=== PATIENT | female | born 1960 | race Caucasian/White ===

== ENCOUNTER 2016-12-23 13:59 | Emergency (ER) | payer OTHER ==
[~2016-12-23] VITALS: Ht 157.5 cm; Wt 68.0 kg
[~2016-12-23 13:59] MED LIST: ALBU8.5HRX IH; ALPR.5T PO; ALPR1T PO; ASPI-999 PO; ASPI81TA19 GT; Atorvastatin Calcium PO; BUDE6HFA IH; CITA10TA PO; CLPD75T PO; ENAL20TA PO; FENT1PAT10 TD; HYDR-2890 PO; HYDR-3820 PO; HYDR-753 PO; HYDR1TAB PO; HYDR1TAB86 PO; MEPE50TA PO; MULT-974 PO; NITR-65 PO; NITR100C44 PO; NO HOME MEDS; ONDA4TAB8 PO; ONDAN4ODT PO; OXYC-188 PO; PANT20TA PO; PNT40TEC PO; PRD50T PO; RT-ALBUINH IH; SUCR1ORA5 PO; TRM50T PO
[2016-12-23] MEDS ORDERED: ASPIRIN 81 MG CHEW (CHILDREN'S ASA) ONE (14:07)
[2016-12-23] MEDS ORDERED: CLOPIDOGREL 300 MG (PLAVIX) TABLET PO ONE (14:08)
[2016-12-23 14:57] LABS: BASOPHILS % (AUTO) 1 % (0-10); EOSINOPHILS # (AUTO) 0.1 10^3/uL (0.0-0.3); EOSINOPHILS % (AUTO) 2 % (0-10); LYMPHOCYTES # (AUTO) 1.6 X 10^3 (1.0-4.0); LYMPHOCYTES % (AUTO) 35 % (12-44); MEAN CORPUSCULAR HEMOGLOBIN 33 PG (25-34); MEAN CORPUSCULAR HGB CONC 34 G/DL (32-36); MEAN CORPUSCULAR VOLUME 97 FL (80-99); MEAN PLATELET VOLUME 10.9 FL (7.4-10.4); MONOCYTES # (AUTO) 0.4 X 10^3 (0.0-1.0); MONOCYTES % (AUTO) 8 % (0-12); NEUTROPHILS # (AUTO) 2.5 X 10^3 (1.8-7.8); NEUTROPHILS % (AUTO) 54 % (42-75); PLATELET COUNT 146 10^3/uL (130-400); RED BLOOD COUNT 4.36 10^6/uL (4.35-5.85); RED CELL DISTRIBUTION WIDTH 12.2 % (10.0-14.5); WHITE BLOOD COUNT 4.6 10^3/uL (4.3-11.0)
[2016-12-23] MEDS ORDERED: fentaNYL INJECTION 100 MCG/2 ML AMP IVP ONE (15:00)
[2016-12-23] MEDS ORDERED: ONDANSETRON 4 MG/2 ML (SDV) Z0FRAN IVP ONE (15:00)
--- NOTE | 2016-12-23 15:00 | ED Abdominal Pain ---
General Chief Complaint: Abdominal/GI Problems Stated Complaint: ABDOMINAL PAIN Nursing Triage Note: c/o abd pain. Onset this morning. Sepsis Screen: No Definite Risk Source of Information: Patient Exam Limitations: No Limitations History of Present Illness Time Seen By Provider: 14:58 Initial Comments To ER with c/o nausea, epigastric pain since awakening this morning. No fevers. No vomiting. Not having bowel movements. Also had high blood pressure today at 180/90 this morning. Has known chronic pancreatitis. Timing/Duration: 12-24 Hours Severity/Quality: Moderate Radiation: No Radiation Activities at Onset: None Associated Symptoms: Nausea/Vomiting Allergies and Home Medications Allergies Coded Allergies: morphine (Verified Allergy, Mild, NAUSEA, 06/23/11) Penicillins (Verified Allergy, Unknown, 07/17/14) sulfamethoxazole (Verified Allergy, Unknown, NAUSEA, 07/24/15) PT REPORTS EMESIS WITH EVERY DOSE TAKEN, REGARDLESS OF FOOD INTAKE trimethoprim (Verified Allergy, Unknown, NAUSEA, 07/24/15) PT REPORTS EMESIS WITH EVERY DOSE TAKEN, REGARDLESS OF FOOD INTAKE Home Medications Albuterol Sulfate 8.5 Gm Hfa.aer.ad, 1 PUFF IH BID PRN for CONGESTION, (Reported ) Alprazolam 1 Mg Tablet, 1 MG PO Q6H PRN for ANXIETY, (Reported) Aspirin 81 Mg Tab.chew, 81 MG PO DAILY, (Reported) Enalapril Maleate 20 Mg Tablet, 20 MG PO HS, (Reported) Hydrocodone/Acetaminophen 1 Each Tablet, 1 TAB PO Q4H PRN for PAIN, (Reported) Multivitamin 1 Each Tablet, 1 TAB PO HS, (Reported) Pantoprazole Sodium 20 Mg Tablet.dr, 20 MG PO BID, (Reported) Sucralfate 1 Gm/10 Ml Oral.susp, 1 GM PO QID, #1200 30 minutes before meals and at bedtime Prescribed by: SOPHIE HERRERA on 03/28/16 0512 Review of Systems Constitutional: see HPI EENTM: No Symptoms Reported Respiratory: No Symptoms Reported Cardiovascular: No Symptoms Reported Gastrointestinal: See HPI, Abdominal Pain, Constipated, Denies Diarrhea, Nausea Genitourinary: No Symptoms Reported Musculoskeletal: no symptoms reported Skin: no symptoms reported Psychiatric/Neurological: No Symptoms Reported Endocrine: No Symptoms Reported Hematologic/Lymphatic: No Symptoms Reported Past Nuqfdst-Eltsbl-Awzzwm Hx Patient Social History Type Used: Cigarettes Recent Foreign Travel: No Contact w/Someone Who Travel: No Recent Infectious Disease Expo: No Recent Hopitalizations: No Immunizations Up To Date Tetanus Booster (TDap): More than 5yrs PED Vaccines UTD: No Date of Pneumonia Vaccine: Jul 16, 2013 Date of Influenza Vaccine: Jul 24, 2015 Seasonal Allergies Seasonal Allergies: Yes Surgeries HX Surgeries: Yes (PANCREATIC STENT AND REMOVAL; HYSTERECTOMY, CARPAL TUNNEL, CAREY) Surgeries: Gallbladder, Hysterectomy, Orthopedic Respiratory Hx Respiratory Disorders: Yes Respiratory Disorders: Chronic Bronchitis Cardiovascular Hx Cardiac Disorders: Yes Cardiac Disorders: Hypertension Neurological Hx Neurological Disorders: No Reproductive System Hx Reproductive Disorders: No Sexually Transmitted Disease: No HIV/AIDS: No Female Reproductive Disorders: Denies 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 Genitourinary Hx Genitourinary Disorders: No Gastrointestinal Hx Gastrointestinal Disorders: Yes Gastrointestinal Disorders: Gastroesophageal Reflux, Chronic Constipation, Pancreatitis Musculoskeletal Hx Musculoskeletal Disorders: Yes Musculoskeletal Disorders: Degenerate Disk Disease, Arthritis, Chronic Back Pain Endocrine Hx Endocrine Disorders: No HEENT HX ENT Disorders: No Loss of Vision: Denies Hearing Impairment: Denies Cancer Hx Cancer: No Psychosocial Hx Psychiatric Problems: Yes Behavioral Health Disorders: Sleep Difficulties, Anxiety, Depression Integumentary HX Skin/Integumentary Disorder: No Blood Transfusions Hx Blood Disorders: No Adverse Reaction to a Blood Tr: No Family Medical History Family Medial History: Alcoholism 03 FATHER, , Onset:Unknown Cancer 03 FATHER, (LUNG) 03 MOTHER, (LUNG) 09 SISTER, (OVARIAN) 09 SISTER, Age:56 (BREAST ) Family history: Arthritis 09 SISTER, Age:56 Family history: Asthma 09 SISTER, Age:56 Family history: Breast disease Family history: Thyroid disorder 09 SISTER, Age:56 History of - anemia 03 MOTHER, History of - respiratory disease 03 FATHER, 03 MOTHER, 09 SISTER, Age:56 No Family History of: Abdominal aortic aneurysm [place]'s disease Aphasia Cancer of colon Cataract Chest pain Congenital heart disease Congestive heart failure Cystic fibrosis Dementia Dysphagia Family history: Allergy Family history: Alzheimer's disease Family history: Cardiovascular disease Family history: Coronary thrombosis Family history: Diabetes mellitus Family history: Gastrointestinal disease Family history: Glaucoma Family history: Hypertension Family history: Osteoporosis Headache Hearing loss Heart disease Hereditary disease History of - disorder History of drug abuse Human immunodeficiency virus (HIV) seropositivity Hypercholesterolemia Infertile Kidney disease Myocardial infarction Parkinson's disease Prostate cancer Psychotic disorder Seizure disorder Stroke Tuberculosis Visual impairment Physical Exam Vital Signs VS - Last 72 Hours, by Label 12/23/16 14:20 Temp 97.8 Pulse 80 Resp 16 B/P (MAP) 164/87 Pulse Ox 98 Capillary Refill : Less Than 3 Seconds General Appearance: WD/WN, no apparent distress HEENT: PERRL/EOMI, normal ENT inspection Neck: non-tender, full range of motion, supple Respiratory: normal breath sounds, no respiratory distress, no accessory muscle use Gastrointestinal: normal bowel sounds, non tender, soft Extremities: normal range of motion, non-tender Neurologic/Psychiatric: alert, normal mood/affect, oriented x 3 Skin: normal color, warm/dry Progress/Results/Core Measures Results/Orders Lab Results Laboratory Tests Test 12/23/16 14:50 12/23/16 15:36 Range/Units White Blood Count 4.6 4.3-11.0 10^3/uL Red Blood Count 4.36 4.35-5.85 10^6/uL Hemoglobin 14.2 11.5-16.0 G/DL Hematocrit 42 35-52 % Mean Corpuscular Volume 97 80-99 FL Mean Corpuscular Hemoglobin 33 25-34 PG Mean Corpuscular Hemoglobin Concent 34 32-36 G/DL Red Cell Distribution Width 12.2 10.0-14.5 % Platelet Count 146 130-400 10^3/uL Mean Platelet Volume 10.9 H 7.4-10.4 FL Neutrophils (%) (Auto) 54 42-75 % Lymphocytes (%) (Auto) 35 12-44 % Monocytes (%) (Auto) 8 0-12 % Eosinophils (%) (Auto) 2 0-10 % Basophils (%) (Auto) 1 0-10 % Neutrophils # (Auto) 2.5 1.8-7.8 X 10^3 Lymphocytes # (Auto) 1.6 1.0-4.0 X 10^3 Monocytes # (Auto) 0.4 0.0-1.0 X 10^3 Eosinophils # (Auto) 0.1 0.0-0.3 10^3/uL Basophils # (Auto) 0.0 0.0-0.1 10^3/uL Sodium Level 142 135-145 MMOL/L Potassium Level 4.3 3.6-5.0 MMOL/L Chloride Level 109 H 98-107 MMOL/L Carbon Dioxide Level 26 21-32 MMOL/L Anion Gap 7 5-14 MMOL/L Blood Urea Nitrogen 8 7-18 MG/DL Creatinine 0.77 0.60-1.30 MG/DL Estimat Glomerular Filtration Rate > 60 BUN/Creatinine Ratio 10 Glucose Level 84 70-105 MG/DL Calcium Level 8.8 8.5-10.1 MG/DL Total Bilirubin 0.7 0.1-1.0 MG/DL Aspartate Amino Transf (AST/SGOT) 16 5-34 U/L Alanine Aminotransferase (ALT/SGPT) 11 0-55 U/L Alkaline Phosphatase 70 40-136 U/L Total Protein 5.8 L 6.4-8.2 G/DL Albumin 3.8 3.2-4.5 G/DL Lipase 13 8-78 U/L Urine Color YELLOW Urine Clarity SLIGHTLY CLOUDY Urine pH 7 5-9 Urine Specific [place] 1.005 L 1.016-1.022 Urine Protein NEGATIVE NEGATIVE Urine Glucose (UA) NEGATIVE NEGATIVE Urine Ketones NEGATIVE NEGATIVE Urine Nitrite NEGATIVE NEGATIVE Urine Bilirubin NEGATIVE NEGATIVE Urine Urobilinogen NORMAL NORMAL MG/DL Urine Leukocyte Esterase NEGATIVE NEGATIVE Urine RBC (Auto) NEGATIVE NEGATIVE Urine RBC NONE /HPF Urine WBC NONE /HPF Urine Squamous Epithelial Cells 5-10 /HPF Urine Crystals NONE /LPF Urine Bacteria NEGATIVE /HPF Urine Casts NONE /LPF Urine Mucus NEGATIVE /LPF Urine Culture Indicated NO My Orders Orders - SHELBY LEGGETT APRN Saline Lock/Iv-Start (12/23/16 14:27) Cbc With Automated Diff (12/23/16 14:27) Comprehensive Metabolic Panel (12/23/16 14:27) Lipase (12/23/16 14:27) Ua Culture If Indicated (12/23/16 14:27) Acute Abd Series (12/23/16 14:56) Fentanyl Injection (Sublimaze Injection (12/23/16 15:00) Ondansetron Injection (Zofran Injectio (12/23/16 15:00) Medications Given in ED Current Medications Medications Dose Ordered Sig/Piper Route Start Time Stop Time Status Last Admin Dose Admin Fentanyl Citrate 50 mcg ONCE ONCE IVP 12/23/16 15:00 12/23/16 15:01 DC 12/23/16 15:34 50 MCG Ondansetron HCl 4 mg ONCE ONCE IVP 12/23/16 15:00 12/23/16 15:01 DC 12/23/16 15:34 4 MG Vital Signs/I&O Vital Sign - Last 12Hours 12/23/16 14:20 Temp 97.8 Pulse 80 Resp 16 B/P (MAP) 164/87 Pulse Ox 98 Blood Pressure Mean: 112 Diagnostic Imaging Diagonstic Imaging: Xray Comments NAME: AIXA AGUIRRE [facility] REC#: [id number] PT STATUS: REG ER : 1960 PHYSICIAN: SHELBY LEGGETT DEVELOPMENT EDUCATOR ADMIT DATE: 12/23/16/ER Draft Date of Exam:12/23/16 ACUTE ABD SERIES INDICATION: History of pancreatitis since 2011. Complains of abdominal pain, headache and nausea for the past couple of days. Elevated blood pressure for two days. COMPARISON STUDY: Abdomen from March 28. FINDINGS: Upright view of the chest demonstrates the lungs to be clear. The heart, mediastinum and pulmonary vascularity are normal. Supine and upright views of the abdomen demonstrate surgical clips in the region of the gallbladder fossa. Bowel gas pattern appears normal. No free air or air fluid levels are present. The osseous structures demonstrate minimal degenerative changes. IMPRESSION: There are no acute findings. Dictated on workstation # [id number] Dict: 12/23/16 1521 Trans: 12/23/16 1531 [facility] [id number] Interpreted by: MARGAUX DOVE MD Electronically signed by: Departure Impression Impression: Primary Impression: Upper abdominal pain Additional Impressions: Chronic pancreatitis Hypertension Disposition: HOME, SELF-CARE Condition: Improved Departure-Patient Inst. Decision time for Depature: 14:59 Referrals: KATARINA RUBIN MD (PCP/Family) Primary Care Physician Patient Instructions: Chronic Pancreatitis Add. Discharge Instructions: Clear liquids only for the next 12-24 hours 2. Return to ER for any concerns 3. Follow-up with your doctor next week 4. I have given a prescription for hydrochlorothiazide, a mild diuretic to add to your enalapril. Unfortunately the combination drug told about including enalapril/hydrochlorothiazide does come any strength containing 20 mg of enalapril so we will have to add a second pill to her regimen. All discharge instructions reviewed with patient and/or family. Voiced understanding. Scripts Hydrochlorothiazide (Hydrochlorothiazide) 25 Mg Tablet 25 MG PO DAILY, #10 TAB Prov: SHELBY LEGGETT APRN 12/23/16 Work/School Note: Work Release Form Date Seen in the Emergency Department: Dec 23, 2016 Return to Work: Dec 25, 2016 SHELBY LEGGETT APRN Dec 23, 2016 15:00
[2016-12-23 15:21] LABS: ALANINE AMINOTRANSFERASE 11 U/L (0-55); ALBUMIN 3.8 G/DL (3.2-4.5); ANION GAP 7 MMOL/L (5-14); ASPARTATE AMINO TRANSFERASE 16 U/L (5-34); BILIRUBIN,TOTAL 0.7 MG/DL (0.1-1.0); BLOOD UREA NITROGEN 8 MG/DL (7-18); BUN/CREATININE RATIO 10; CALCIUM 8.8 MG/DL (8.5-10.1); CARBON DIOXIDE 26 MMOL/L (21-32); CHLORIDE 109 MMOL/L (98-107); CREATININE SERUM 0.77 MG/DL (0.60-1.30); GFR ESTIMATED > 60; GLUCOSE 84 MG/DL (70-105); LIPASE 13 U/L (8-78); POTASSIUM 4.3 MMOL/L (3.6-5.0); SODIUM 142 MMOL/L (135-145); TOTAL PROTEIN 5.8 G/DL (6.4-8.2)
--- NOTE | 2016-12-23 15:32 | Diagnostic Imaging Report ---
INDICATION: History of pancreatitis since 2011. Complains of abdominal pain, headache and nausea for the past couple of days. Elevated blood pressure for two days. COMPARISON STUDY: Abdomen from March 28. FINDINGS: Upright view of the chest demonstrates the lungs to be clear. The heart, mediastinum and pulmonary vascularity are normal. Supine and upright views of the abdomen demonstrate surgical clips in the region of the gallbladder fossa. Bowel gas pattern appears normal. No free air or air fluid levels are present. The osseous structures demonstrate minimal degenerative changes. IMPRESSION: There are no acute findings. Dictated by: Dictated on workstation # [id number]
[2016-12-23 15:42] LABS: BILIRUBIN,URINE NEGATIVE (NEGATIVE); KETONES,URINE NEGATIVE (NEGATIVE); LEUKOCYTE ESTERASE ,URINE NEGATIVE (NEGATIVE); NITRITE,URINE NEGATIVE (NEGATIVE); PH,URINE 7 (5-9); PROTEIN,URINE NEGATIVE (NEGATIVE); UROBILINOGEN,URINE NORMAL (NORMAL)
[2016-12-23] MEDS ORDERED: HYDR25TA4 PO (16:17)
[2016-12-23 16:28] VITALS: BP 148/80
== END 2016-12-23 16:28 | disposition home or self-care (01) ==
LOC: EDUNIT# 13:59 → ER 14:02
DX: K86.1 Other chronic pancreatitis (principal); I10 Essential (primary) hypertension; Z79.82 Long term (current) use of aspirin; Z79.899 Other long term (current) drug therapy
CPT/HCPCS: 36415; 74022; 80053; 81000; 83690; 85025; 96374; 96375

== ENCOUNTER → 2018-01-04 | Outpatient (CLI) | payer OTHER ==
[~2018-01-04] MED LIST changes: +BARIUM SUSPENSION 2.1% (VANILLA SILQ) 450 ML PO ONE; +CATHETER FLUSH 10 ML SYR IV PRN; +HYDR25TA4 PO; +IOHEXOL 350 MG/ML 100 ML (OMNIPAQUE 350) VIAL IV ONE; +NS 250 ML (IVPB) BAG IV ONE; +RECEIVED CONTRAST (Hold Metformin) IV SCH
--- NOTE | 2018-01-04 16:09 | Diagnostic Imaging Report ---
PROCEDURE: CT chest, abdomen, and pelvis with contrast. TECHNIQUE: Multiple contiguous axial images were obtained through the chest, abdomen, and pelvis after the administration of intravenous contrast. INDICATION: Weight fluctuation. FINDINGS: The previous CT abdomen/pelvis exam of 07/23/2015 noted diverticulosis of the sigmoid colon but failed to show any sign of acute diverticulitis. On this exam, there are still a number of diverticula involving the sigmoid colon. There is no distortion of the pericolonic fat however to indicate acute diverticulitis. There does appear to be a fair amount of fecal material throughout the colon. The appendix was not well visualized but there are no indirect signs of acute appendicitis. There are few fluid-filled segments of small bowel, low in the pelvis. These are nonspecific. There is no pelvic mass or free fluid collection noted. The urinary bladder is grossly unremarkable. The uterus is surgically absent. The gallbladder is also surgically absent. The liver, spleen, pancreas, adrenals, kidneys, aorta, and inferior vena cava show no sign of an acute abnormality. The aorta is small and there is heavy calcification involving the origin of both common iliac arteries. The stomach is not well distended and consequently difficult to assess. The images through the thorax show that the heart size is within normal limits. Coronary artery calcifications are evident. The aorta is not abnormally dilated. The pulmonary arteries are not fully opacified but there is no definite defect to suggest a pulmonary embolus. There is no mediastinal or hilar adenopathy. The thyroid gland is generally unremarkable. There are bullae/blebs involving both lung apices, particularly on the right. The lungs are generally clear, otherwise. There are few strands of atelectasis in the right lower lobe. There is no sign of failure, pneumonia, or of a pleural effusion to suggest an acute abnormality, however. There is no parenchymal lung mass identified either. There is no obvious breast mass. According to our records, the patient has not had a mammogram since 2012. If the patient has had a recent (within the last year) mammogram elsewhere, then no further imaging will be necessary. However, if the patient has not had a recent mammogram, then mammography would be recommended for further evaluation. The bone windows show no sign of a fracture or of a destructive lesion. IMPRESSION: 1. There is no acute abnormality of the chest, abdomen, or pelvis. 2. There is diverticulosis of the sigmoid colon without evidence for acute diverticulitis. There does appear to be a fair amount of fecal material throughout the colon. 3. The uterus and gallbladder are surgically absent. 4. There are bullae/blebs involving both lung apices, particularly on the right. 5. There is no obvious breast mass. Recommendations, as above. Dictated by: Dictated on workstation # [id number]
== END ==
LOC: RAD 13:32
PROVIDERS: ATTEND Family Medicine
DX: K57.30 Diverticulosis of large intestine without perforation or abscess without bleeding (principal); Z90.49 Acquired absence of other specified parts of digestive tract; Z90.710 Acquired absence of both cervix and uterus; Z87.19 Personal history of other diseases of the digestive system
CPT/HCPCS: 71260; 74177

== ENCOUNTER 2018-05-17 12:25 | Outpatient (CLI) | payer OTHER ==
[~2018-05-17] VITALS: Ht 157.5 cm; Wt 69.6 kg
[~2018-05-17 12:25] MED LIST changes: -BARIUM SUSPENSION 2.1% (VANILLA SILQ) 450 ML PO ONE; -CATHETER FLUSH 10 ML SYR IV PRN; +HYDR-4196 PO; -HYDR-753 PO; -IOHEXOL 350 MG/ML 100 ML (OMNIPAQUE 350) VIAL IV ONE; -NS 250 ML (IVPB) BAG IV ONE; -RECEIVED CONTRAST (Hold Metformin) IV SCH
[2018-05-17] MEDS ORDERED: ALPR1TAB7 PO (12:46)
[2018-05-17] MEDS ORDERED: HYDR12.56 PO (12:46)
[2018-05-17] MEDS ORDERED: ONDA8TAB13 PO (12:46)
[2018-05-17] MEDS ORDERED: BISA5TAB49 PO (12:46)
[2018-05-17] MEDS ORDERED: CYCL10TA9 PO (12:46)
[2018-05-17] MEDS ORDERED: MULT-351 PO (12:46)
[2018-05-17] MEDS ORDERED: AMLO5TAB7 PO (12:46)
[2018-05-17] MEDS ORDERED: PANT20TA3 PO (12:46)
[2018-05-17 12:51] VITALS: BP 126/74
== END 2018-05-17 14:00 | disposition home or self-care (01) ==
LOC: PREOP 12:25
PROVIDERS: ATTEND Orthopaedic Surgery
DX: Z01.818 Encounter for other preprocedural examination (principal)
CPT/HCPCS: 87081

== ENCOUNTER 2018-05-17 13:35 | Emergency (ER) | payer OTHER ==
[~2018-05-17] VITALS: Ht 157.5 cm; Wt 69.9 kg
[~2018-05-17 13:35] MED LIST changes: +ALPR1TAB7 PO; +AMLO5TAB7 PO; +BISA5TAB49 PO; +CYCL10TA9 PO; +HYDR12.56 PO; +MULT-351 PO; +ONDA8TAB13 PO; +PANT20TA3 PO
--- OUTSIDE RECORDS SUMMARY | 2018-05-17 13:43 | XMS REPORT | Continuity of Care Document ---
Author Author [facility] Organization [facility] Address Unknown Phone Unavailable Allergies Active Description Code Type Severity Reaction Onset Reported/Identified Relationship to Patient Clinical Status Yes morphine [id number] Drug Allergy Mild NAUSEA 06/23/2011 Yes Penicillins [id number] Drug Allergy Unknown N/A 07/17/2014 Yes sulfamethoxazole [id number] Drug Allergy Unknown NAUSEA 07/24/2015 Yes trimethoprim [id number] Drug Allergy Unknown NAUSEA 07/24/2015 Medications There is no data. Problems Date Dx Coded Attending Type Code Diagnosis Diagnosed By 10/22/2010 Ot 575.11 06/23/2011 Ot 305.1 06/23/2011 Ot 466.0 06/23/2011 Ot 786.2 08/28/2011 Ot 272.4 08/28/2011 Ot 305.1 08/28/2011 Ot 496 08/28/2011 Ot 511.0 08/28/2011 Ot 789.01 08/28/2011 Ot V04.81 09/26/2012 Ot 599.0 09/26/2012 Ot 789.00 07/17/2013 CARYN KEY, KATARINA R Ot 276.50 07/17/2013 CARYN KEY, KATARINA R Ot 305.1 07/17/2013 CARYN KEY, KATARINA R Ot 311 07/17/2013 CARYN KEY, KATARINA R Ot 491.20 08/04/2013 CARYN KEY, KATARINA R Ot 300.00 08/04/2013 CARYN KEY, KATARINA R Ot 305.1 08/04/2013 CARYN KEY, KATARINA R Ot 496 08/04/2013 CARYN KEY, KATARINA R Ot 577.0 07/17/2014 PHILOMENA KEY, MARK Leonard Ot 558.9 NONINF GASTROENTERIT NEC 07/17/2014 MARK QUACH MD Ot 789.06 ABDOMINAL PAIN, EPIGASTRIC 07/22/2014 CARYN KEY, KATARINA R Ot 786.2 08/25/2014 CARYN KEY, KATARINA Davis Ot 786.2 11/23/2014 KATARINA RUBIN MD Ot 272.4 HYPERLIPIDEMIA NEC/NOS 11/23/2014 KATARINA RUBIN MD Ot 305.1 TOBACCO USE DISORDER 11/23/2014 KATARINA RUBIN MD Ot 401.9 HYPERTENSION NOS 11/23/2014 KATARINA RUBIN MD Ot 414.01 CORONARY ATHEROSCLEROSIS OF [place] CORON 11/23/2014 KATARINA RUBIN MD R Ot 530.81 ESOPHAGEAL REFLUX 11/23/2014 KATARINA RUBIN MD Ot 786.50 CHEST PAIN NOS 11/23/2014 KATARINA RUBIN MD Ot V58.69 OTH MED,LT,CURRENT USE 02/04/2015 Ot 789.01 02/04/2015 Ot 571.8 02/04/2015 Ot 593.9 02/04/2015 Ot 789.00 02/04/2015 Ot 530.81 02/04/2015 Ot 492.8 02/04/2015 Ot 537.1 02/04/2015 Ot 562.10 02/04/2015 Ot 959.7 02/04/2015 Ot E000.8 02/04/2015 Ot E819.9 02/04/2015 KATARINA RUBIN MD Ot V76.12 02/04/2015 Ot 789.01 02/04/2015 Ot 571.8 02/04/2015 Ot 593.9 02/04/2015 Ot 789.00 02/04/2015 Ot 530.81 02/04/2015 Ot 492.8 02/04/2015 Ot 537.1 02/04/2015 Ot 562.10 02/04/2015 Ot 959.7 02/04/2015 Ot E000.8 02/04/2015 Ot E819.9 02/04/2015 KATARINA RUBIN MD Ot V76.12 06/18/2015 RAFAELA MON MD Ot M54.6 07/17/2015 RAFAELA MON MD Ot M54.6 07/23/2015 KATARINA RUBIN MD Ot 786.2 07/23/2015 RAFAELA MON MD Ot M54.6 07/27/2015 SEGLIE MD, KATARINA R Ot F17.210 NICOTINE DEPENDENCE, CIGARETTES, UNCOMPL 07/27/2015 KATARINA RUBIN MD R Ot I10 ESSENTIAL (PRIMARY) HYPERTENSION 07/27/2015 CARYN KEY, KATARINA R Ot K21.9 GASTRO-ESOPHAGEAL REFLUX DISEASE WITHOUT 07/27/2015 CARYN KEY, KATARINA R Ot K86.1 OTHER CHRONIC PANCREATITIS 07/27/2015 KATARINA RUBIN MD R Ot R10.11 RIGHT UPPER QUADRANT PAIN 07/27/2015 BHARAT RUBIN MDYD R Ot Z23 ENCOUNTER FOR IMMUNIZATION 07/28/2015 KATARINA RUBIN MD R Ot E78.5 HYPERLIPIDEMIA, UNSPECIFIED 07/28/2015 KATARINA RUBIN MD R Ot F17.210 NICOTINE DEPENDENCE, CIGARETTES, UNCOMPL 07/28/2015 KATARINA RUBIN MD R Ot F41.9 ANXIETY DISORDER, UNSPECIFIED 07/28/2015 KATARINA RUBIN MD R Ot I10 ESSENTIAL (PRIMARY) HYPERTENSION 07/28/2015 CARYN KEY, KATARINA R Ot I25.10 ATHSCL HEART DISEASE OF [place] CORONARY 07/28/2015 KATARINA RUBIN MD R Ot K21.9 GASTRO-ESOPHAGEAL REFLUX DISEASE WITHOUT 07/28/2015 KATARINA RUBIN MD R Ot K86.1 OTHER CHRONIC PANCREATITIS 07/28/2015 KATARINA RUBIN MD R Ot R07.9 CHEST PAIN, UNSPECIFIED 07/28/2015 BHARAT RUBIN MDYD R Ot E78.5 07/28/2015 BHARAT RUBIN MDYD R Ot F17.210 07/28/2015 KATARINA RUBIN MD R Ot F41.9 07/28/2015 CARYN KEY KATARINA R Ot I10 07/28/2015 KATARINA RUBIN MD R Ot I25.10 07/28/2015 KATARINA RUBIN MD R Ot K21.9 07/28/2015 KATARINA RUBIN MD R Ot K86.1 07/28/2015 KATARINA RUBIN MD R Ot R07.9 03/28/2016 LUZMARIA KEY, SOPHIE Mitchell Ot F17.210 NICOTINE DEPENDENCE, CIGARETTES, UNCOMPL 03/28/2016 LUZMARIA KEY, SOPHIE T Ot R10.13 EPIGASTRIC PAIN 03/28/2016 SOPHIE DUTTA MD T Ot Z87.19 PERSONAL HISTORY OF OTHER DISEASES OF 03/29/2016 LUZMARIA KEY, SOPHIE Mitchell Ot F17.210 NICOTINE DEPENDENCE, CIGARETTES, UNCOMPL 03/29/2016 SOPHIE DUTTA MD T Ot R10.13 EPIGASTRIC PAIN 03/29/2016 SOPHIE DUTTA MD T Ot Z87.19 PERSONAL HISTORY OF OTHER DISEASES OF 03/30/2016 SOPHIE DUTTA MD T Ot F17.210 NICOTINE DEPENDENCE, CIGARETTES, UNCOMPL 03/30/2016 SOPHIE DUTTA MD T Ot R10.13 EPIGASTRIC PAIN 03/30/2016 LUZMARIA KEY, SOPHIE T Ot Z87.19 PERSONAL HISTORY OF OTHER DISEASES OF 04/21/2016 SOPHIE DUTTA MD T Ot F17.210 NICOTINE DEPENDENCE, CIGARETTES, UNCOMPL 04/21/2016 SOPHIE DUTTA MD T Ot R10.13 EPIGASTRIC PAIN 04/21/2016 LUZMARIA KEY, SOPHIE T Ot Z87.19 PERSONAL HISTORY OF OTHER DISEASES OF 12/23/2016 KATARINA RUBIN MD R Ot 786.2 COUGH 12/23/2016 ELIESER KEY, RAFAELA Rice Ot M54.6 PAIN IN THORACIC SPINE 12/23/2016 SHELBY LEGGETT APRN Ot I10 ESSENTIAL (PRIMARY) HYPERTENSION 12/23/2016 SHELBY LEGGETT APRN Ot K86.1 OTHER CHRONIC PANCREATITIS 12/23/2016 SHELBY LEGGETT APRN Ot R10.13 EPIGASTRIC PAIN 12/23/2016 SHELBY LEGGETT HEAD BANQUET WAITRESS Ot Z79.82 USP (CURRENT) USE OF ASPIRIN 12/23/2016 SHELBY LEGGETT HEAD BANQUET WAITRESS Ot Z79.899 OTHER SPRUE KNOCKER (CURRENT) DRUG THERAPY 12/23/2016 KATARINA RUBIN MD R Ot 786.2 COUGH 12/23/2016 RAFAELA MON MD Ot M54.6 PAIN IN THORACIC SPINE 12/25/2016 SHELBY LEGGETT APRN Ot I10 ESSENTIAL (PRIMARY) HYPERTENSION 12/25/2016 SHELBY LEGGETT APRN Ot K86.1 OTHER CHRONIC PANCREATITIS 12/25/2016 SHELBY LEGGETT HEAD BANQUET WAITRESS Ot R10.13 EPIGASTRIC PAIN 12/25/2016 SHELBY LEGGETT HEAD BANQUET WAITRESS Ot Z79.82 USP (CURRENT) USE OF ASPIRIN 12/25/2016 SHELBY LEGGETT HEAD BANQUET WAITRESS Ot Z79.899 OTHER SPRUE KNOCKER (CURRENT) DRUG THERAPY 12/29/2016 SHELBY LEGGETT HEAD BANQUET WAITRESS Ot I10 ESSENTIAL (PRIMARY) HYPERTENSION 12/29/2016 SHELBY LEGGETT HEAD BANQUET WAITRESS Ot K86.1 OTHER CHRONIC PANCREATITIS 12/29/2016 SHELBY LEGGETT HEAD BANQUET WAITRESS Ot R10.13 EPIGASTRIC PAIN 12/29/2016 SHELBY LEGGETT HEAD BANQUET WAITRESS Ot Z79.82 SPRUE KNOCKER (CURRENT) USE OF ASPIRIN 12/29/2016 SHELBY LEGGETT HEAD BANQUET WAITRESS Ot Z79.899 OTHER USP (CURRENT) DRUG THERAPY 12/28/2017 KATARINA RUBIN MD Ot 786.2 COUGH 12/28/2017 RAFAELA MON MD Ot M54.6 PAIN IN THORACIC SPINE 01/04/2018 KATARINA RUBIN MD Ot 786.2 COUGH 01/04/2018 RAFAELA MON MD Ot M54.6 PAIN IN THORACIC SPINE 01/05/2018 KATARINA RUBIN MD Ot K57.30 DVRTCLOS OF LG INT W/O PERFORATION OR AB 01/05/2018 KATARINA RUBIN MD Ot Z87.19 PERSONAL HISTORY OF OTHER DISEASES OF 01/05/2018 KATARINA RUBIN MD Ot Z90.49 ACQUIRED ABSENCE OF OTHER SPECIFIED PART 01/05/2018 KATARINA RUBIN MD Ot Z90.710 ACQUIRED ABSENCE OF BOTH CERVIX AND UTER 01/10/2018 KATARINA RUBIN MD Ot K57.30 DVRTCLOS OF LG INT W/O PERFORATION OR AB 01/10/2018 KATARINA RUBIN MD Ot Z87.19 PERSONAL HISTORY OF OTHER DISEASES OF 01/10/2018 KATARINA RUBIN MD Ot Z90.49 ACQUIRED ABSENCE OF OTHER SPECIFIED PART 01/10/2018 KATARINA RUBIN MD Ot Z90.710 ACQUIRED ABSENCE OF BOTH CERVIX AND UTER 01/30/2018 KATARINA RUBIN MD Ot K57.30 DVRTCLOS OF LG INT W/O PERFORATION OR AB 01/30/2018 KATARINA RUBIN MD Ot Z87.19 PERSONAL HISTORY OF OTHER DISEASES OF TH 01/30/2018 KATARINA RUBIN MD, Ot Z90.49 ACQUIRED ABSENCE OF OTHER SPECIFIED PART 01/30/2018 KATARINA RUBIN MD, Ot Z90.710 ACQUIRED ABSENCE OF BOTH CERVIX AND UTER Procedures There is no data. Results Test Result Range Complete urinalysis with reflex to culture - 03/28/16 03:25 Urine color determination YELLOW NRG Urine clarity determination CLEAR NRG Urine pH measurement by test strip 7 5-9 Specific gravity of urine by test strip 1.010 1.016- 1.022 Urine protein assay by test strip, semi-quantitative NEGATIVE NEGATIVE Urine glucose detection by automated test strip NEGATIVE NEGATIVE Erythrocytes detection in urine sediment by light microscopy 1+ NEGATIVE Urine ketones detection by automated test strip NEGATIVE NEGATIVE Urine nitrite detection by test strip NEGATIVE NEGATIVE Urine total bilirubin detection by test strip NEGATIVE NEGATIVE Urine urobilinogen measurement by automated test strip (mass/volume) NORMAL NORMAL Urine leukocyte esterase detection by dipstick NEGATIVE NEGATIVE Automated urine sediment erythrocyte count by microscopy (number/high power field) [HPF] NRG Automated urine sediment leukocyte count by microscopy (number/high power field ) NONE NRG Bacteria detection in urine sediment by light microscopy NEGATIVE NRG Squamous epithelial cells detection in urine sediment by light microscopy 2-5 NRG Crystals detection in urine sediment by light microscopy NONE NRG Casts detection in urine sediment by light microscopy NONE NRG Mucus detection in urine sediment by light microscopy NEGATIVE NRG Complete urinalysis with reflex to culture NO NRG Complete blood count (CBC) with automated white blood cell (WBC) differential - 03/28/16 03:50 Blood leukocytes automated count (number/volume) 6.8 10*3/uL 4.3-11.0 Blood erythrocytes automated count (number/volume) 4.58 10*6/uL 4.35-5.85 Venous blood hemoglobin measurement (mass/volume) 15.0 g/dL 11.5-16.0 Blood hematocrit (volume fraction) 43 % 35-52 Automated erythrocyte mean corpuscular volume 94 [foz_us] 80-99 Automated erythrocyte mean corpuscular hemoglobin (mass per erythrocyte) 33 pg 25-34 Automated erythrocyte mean corpuscular hemoglobin concentration measurement ( mass/volume) 35 g/dL 32-36 Automated erythrocyte distribution width ratio 11.9 % 10.0-14.5 Automated blood platelet count (count/volume) 173 10*3/uL 130-400 Automated blood platelet mean volume measurement 11.1 [foz_us] 7.4-10.4 Automated blood neutrophils/100 leukocytes 52 % 42-75 Automated blood lymphocytes/100 leukocytes 39 % 12-44 Blood monocytes/100 leukocytes 7 % 0-12 Automated blood eosinophils/100 leukocytes 2 % 0-10 Automated blood basophils/100 leukocytes 0 % 0-10 Blood neutrophils automated count (number/volume) 3.5 10*3 1.8-7.8 Blood lymphocytes automated count (number/volume) 2.7 10*3 1.0-4.0 Blood monocytes automated count (number/volume) 0.5 10*3 0.0-1.0 Automated eosinophil count 0.1 10*3/uL 0.0-0.3 Automated blood basophil count (count/volume) 0.0 10*3/uL 0.0-0.1 Serum or plasma ethanol measurement (mass/volume) - 03/28/16 03:50 Serum or plasma ethanol measurement (mass/volume) < mg/dL <10 Comprehensive metabolic panel - 03/28/16 03:50 Serum or plasma sodium measurement (moles/volume) 142 mmol/L 135-145 Serum or plasma potassium measurement (moles/volume) 4.0 mmol/L 3.6-5.0 Serum or plasma chloride measurement (moles/volume) 107 mmol/L 98-107 Carbon dioxide 25 mmol/L 21-32 Serum or plasma anion gap determination (moles/volume) 10 mmol/L 5-14 Serum or plasma urea nitrogen measurement (mass/volume) 9 mg/dL 7-18 Serum or plasma creatinine measurement (mass/volume) 0.77 mg/dL 0.60-1.30 Serum or plasma urea nitrogen/creatinine mass ratio 12 NRG Serum or plasma creatinine measurement with calculation of estimated glomerular filtration rate > NRG Serum or plasma glucose measurement (mass/volume) 96 mg/dL 70-105 Serum or plasma calcium measurement (mass/volume) 8.8 mg/dL 8.5-10.1 Serum or plasma total bilirubin measurement (mass/volume) 0.3 mg/dL 0.1-1.0 Serum or plasma alkaline phosphatase measurement (enzymatic activity/volume) 87 U/L 40-136 Serum or plasma aspartate aminotransferase measurement (enzymatic activity/ volume) 14 U/L 5-34 Serum or plasma alanine aminotransferase measurement (enzymatic activity/volume ) 12 U/L 0-55 Serum or plasma protein measurement (mass/volume) 6.2 g/dL 6.4-8.2 Serum or plasma albumin measurement (mass/volume) 3.8 g/dL 3.2-4.5 Lipase - 03/28/16 03:50 Lipase 33 U/L 8-78 Complete blood count (CBC) with automated white blood cell (WBC) differential - 12/23/16 14:50 Blood leukocytes automated count (number/volume) 4.6 10*3/uL 4.3-11.0 Blood erythrocytes automated count (number/volume) 4.36 10*6/uL 4.35-5.85 Venous blood hemoglobin measurement (mass/volume) 14.2 g/dL 11.5-16.0 Blood hematocrit (volume fraction) 42 % 35-52 Automated erythrocyte mean corpuscular volume 97 [foz_us] 80-99 Automated erythrocyte mean corpuscular hemoglobin (mass per erythrocyte) 33 pg 25-34 Automated erythrocyte mean corpuscular hemoglobin concentration measurement ( mass/volume) 34 g/dL 32-36 Automated erythrocyte distribution width ratio 12.2 % 10.0-14.5 Automated blood platelet count (count/volume) 146 10*3/uL 130-400 Automated blood platelet mean volume measurement 10.9 [foz_us] 7.4-10.4 Automated blood neutrophils/100 leukocytes 54 % 42-75 Automated blood lymphocytes/100 leukocytes 35 % 12-44 Blood monocytes/100 leukocytes 8 % 0-12 Automated blood eosinophils/100 leukocytes 2 % 0-10 Automated blood basophils/100 leukocytes 1 % 0-10 Blood neutrophils automated count (number/volume) 2.5 10*3 1.8-7.8 Blood lymphocytes automated count (number/volume) 1.6 10*3 1.0-4.0 Blood monocytes automated count (number/volume) 0.4 10*3 0.0-1.0 Automated eosinophil count 0.1 10*3/uL 0.0-0.3 Automated blood basophil count (count/volume) 0.0 10*3/uL 0.0-0.1 Comprehensive metabolic panel - 12/23/16 14:50 Serum or plasma sodium measurement (moles/volume) 142 mmol/L 135-145 Serum or plasma potassium measurement (moles/volume) 4.3 mmol/L 3.6-5.0 Serum or plasma chloride measurement (moles/volume) 109 mmol/L 98-107 Carbon dioxide 26 mmol/L 21-32 Serum or plasma anion gap determination (moles/volume) 7 mmol/L 5-14 Serum or plasma urea nitrogen measurement (mass/volume) 8 mg/dL 7-18 Serum or plasma creatinine measurement (mass/volume) 0.77 mg/dL 0.60-1.30 Serum or plasma urea nitrogen/creatinine mass ratio 10 NRG Serum or plasma creatinine measurement with calculation of estimated glomerular filtration rate > NRG Serum or plasma glucose measurement (mass/volume) 84 mg/dL 70-105 Serum or plasma calcium measurement (mass/volume) 8.8 mg/dL 8.5-10.1 Serum or plasma total bilirubin measurement (mass/volume) 0.7 mg/dL 0.1-1.0 Serum or plasma alkaline phosphatase measurement (enzymatic activity/volume) 70 U/L 40-136 Serum or plasma aspartate aminotransferase measurement (enzymatic activity/ volume) 16 U/L 5-34 Serum or plasma alanine aminotransferase measurement (enzymatic activity/volume ) 11 U/L 0-55 Serum or plasma protein measurement (mass/volume) 5.8 g/dL 6.4-8.2 Serum or plasma albumin measurement (mass/volume) 3.8 g/dL 3.2-4.5 Lipase - 12/23/16 14:50 Lipase 13 U/L 8-78 Complete urinalysis with reflex to culture - 12/23/16 15:36 Urine color determination YELLOW NRG Urine clarity determination SLIGHTLY CLOUDY NRG Urine pH measurement by test strip 7 5-9 Specific gravity of urine by test strip 1.005 1.016- 1.022 Urine protein assay by test strip, semi-quantitative NEGATIVE NEGATIVE Urine glucose detection by automated test strip NEGATIVE NEGATIVE Erythrocytes detection in urine sediment by light microscopy NEGATIVE NEGATIVE Urine ketones detection by automated test strip NEGATIVE NEGATIVE Urine nitrite detection by test strip NEGATIVE NEGATIVE Urine total bilirubin detection by test strip NEGATIVE NEGATIVE Urine urobilinogen measurement by automated test strip (mass/volume) NORMAL NORMAL Urine leukocyte esterase detection by dipstick NEGATIVE NEGATIVE Automated urine sediment erythrocyte count by microscopy (number/high power field) NONE NRG Automated urine sediment leukocyte count by microscopy (number/high power field ) NONE NRG Bacteria detection in urine sediment by light microscopy NEGATIVE NRG Squamous epithelial cells detection in urine sediment by light microscopy 5-10 NRG Crystals detection in urine sediment by light microscopy NONE NRG Casts detection in urine sediment by light microscopy NONE NRG Mucus detection in urine sediment by light microscopy NEGATIVE NRG Complete urinalysis with reflex to culture NO NRG Encounters ACCT No. Visit Date/Time Discharge Status Pt. Type Provider Facility Loc./Unit Complaint [id number] 01/04/2018 13:32:00 01/04/2018 23:59:59 CLS Outpatient KATRAINA RUBIN MD [facility] RAD HX OF CHRONIC PANCREATITIS [id number] 12/28/2017 15:27:00 12/28/2017 15:27:00 CAN Preadmit ESTRADA FRANCIS HEAD BANQUET WAITRESS [facility] LAB J20.8 [id number] 12/23/2016 14:02:00 12/23/2016 16:28:00 DIS Emergency SHELBY LEGGETT HEAD BANQUET WAITRESS [facility] ER ABDOMINAL PAIN [id number] 03/28/2016 03:17:00 03/28/2016 05:18:00 DIS Emergency LUZMARIA KEY, SOPHIE Mitchell [facility] ER ABD PAIN [id number] 07/27/2015 16:15:00 07/28/2015 21:43:00 DIS Inpatient KATARINA RUBIN MD [facility] ICU CHEST PAIN [id number] 07/23/2015 20:40:00 07/27/2015 07:31:00 DIS Inpatient KATARINA RUBIN MD [facility] 4TH INTRACTABLE ABD PAIN [id number] 06/15/2015 09:16:00 06/15/2015 23:59:59 CLS Outpatient RAFAELA MON MD [facility] RAD THORAIC PAIN [id number] 11/21/2014 19:30:00 11/23/2014 13:50:00 DIS Outpatient KATARINA RUBIN MD [facility] CATH CHEST PAIN; HYPERTENSIVE URGENCY [id number] 07/17/2014 17:11:00 07/17/2014 21:08:00 DIS Emergency MARK QUACH MD [facility] ER R SIDE PAIN [id number] 04/10/2014 12:05:00 04/10/2014 23:59:59 CLS Outpatient KATARINA RUBIN MD [facility] RAD COUGH FOR LAST 6 WEEKS [id number] 07/31/2013 10:48:00 08/04/2013 09:00:00 DIS Inpatient KATARINA RUBIN MD [facility] 4TH [id number] 07/30/2013 15:14:00 07/30/2013 23:59:59 CLS Outpatient KATARINA RUBIN MD [facility] RAD [id number] 07/15/2013 16:30:00 07/17/2013 11:20:00 DIS Inpatient KATARINA RUBIN MD [facility] 4TH [id number] 05/23/2018 09:00:00 PEN Preadmit RENARD KEY, NOREEN Banks [facility] LT KNEE CHONDROMALACIA, RT SHOULDER ROTATOR CUFF [id number] 02/04/2015 13:17:00 Document Registration [id number] 11/16/2012 13:59:00 Document Registration [id number] 10/05/2012 09:43:00 Document Registration [id number] 09/26/2012 14:43:00 Document Registration [id number] 08/27/2011 10:30:00 Document Registration [id number] 04/22/2011 14:55:00 Document Registration [id number] 10/18/2010 19:46:00 Document Registration [id number] 10/15/2010 11:01:00 Document Registration [id number] 10/14/2010 07:39:00 Document Registration
--- NOTE | 2018-05-17 13:53 | ED Hip Pain/Injury ---
General Chief Complaint: Hip/Pelvic Problems Stated Complaint: FALL;BACK AND HIP PAIN Source: patient Exam Limitations: no limitations History of Present Illness Date Seen by Provider: May 17, 2018 Time Seen by Provider: 13:50 Initial Comments To ER with reports of a fall about 2-3 months ago while at work at [employer]. About 1 month after the fall she developed some posterior right hip pain. She takes hydrocodone at home for chronic pancreatitis she states. Timing/Duration: constant Severity: moderate Modifying Factors: Worse With Movement Allergies and Home Medications Allergies Coded Allergies: doxycycline (Verified Allergy, Mild, GI UPSET, 05/17/18) morphine (Verified Allergy, Mild, NAUSEA, 05/17/18) Penicillins (Verified Allergy, Unknown, 05/17/18) sulfamethoxazole (Verified Allergy, Unknown, NAUSEA, 05/17/18) PT REPORTS EMESIS WITH EVERY DOSE TAKEN, REGARDLESS OF FOOD INTAKE trimethoprim (Verified Allergy, Unknown, NAUSEA, 05/17/18) PT REPORTS EMESIS WITH EVERY DOSE TAKEN, REGARDLESS OF FOOD INTAKE Home Medications Alprazolam 1 Mg Tablet, 1 MG PO Q6H PRN for ANXIETY, (Reported) Amlodipine Besylate 5 Mg Tablet, 2.5 MG PO DAILY, (Reported) Aspirin 81 Mg Tab.chew, 81 MG PO DAILY, (Reported) Bisacodyl 5 Mg Tablet, 5-10 MG PO DAILY, (Reported) Cyclobenzaprine HCl 10 Mg Tablet, 10 MG PO TID PRN for SPASMS, (Reported) Enalapril Maleate 20 Mg Tablet, 20 MG PO HS, (Reported) Hydrochlorothiazide 12.5 Mg Tablet, 12.5 MG PO DAILY, (Reported) Hydrocodone/Acetaminophen 1 Each Tablet, 1 TAB PO Q6H PRN for PAIN, (Reported) Multivitamin 1 Each Tablet, 1 EACH PO DAILY, (Reported) Ondansetron 8 Mg Tab.rapdis, 8 MG PO PRN, (Reported) Pantoprazole Sodium 20 Mg Tablet.dr, 20 MG PO BID, (Reported) Patient Home Medication List Home Medication List Reviewed: Yes Review of Systems Constitutional: see HPI EENTM: see HPI Respiratory: no symptoms reported Cardiovascular: no symptoms reported Genitourinary: no symptoms reported Musculoskeletal: see HPI Skin: no symptoms reported Psychiatric/Neurological: No Symptoms Reported Past Jpcduak-Xkeaog-Pomsmm Hx Patient Social History Type Used: Cigarettes Recent Hopitalizations: No Immunizations Up To Date Tetanus Booster (TDap): More than 5yrs PED Vaccines UTD: No Date of Pneumonia Vaccine: Jul 16, 2013 Date of Influenza Vaccine: Jul 24, 2015 Seasonal Allergies Seasonal Allergies: No Past Medical History Gallbladder, Hysterectomy Chronic Bronchitis, Emphysema Currently Using CPAP: No Currently Using BIPAP: No Hypertension Reproductive Disorders: No Female Reproductive Disorders: Denies CONTROL CHEMIST History: Hysterectomy Sexually Transmitted Disease: No HIV/AIDS: No Gastroesophageal Reflux, Chronic Constipation, Diverticulosis, Pancreatitis Degenerate Disk Disease, Arthritis, Chronic Back Pain Loss of Vision: Denies Hearing Impairment: Denies Sleep Difficulties, Anxiety, Depression Integumentary: Yes Adverse Reaction/Blood Tranf: No (N/A) Family Medical History Alcoholism 03 FATHER, , Onset:Unknown Cancer 03 FATHER, (LUNG) 03 MOTHER, (LUNG) 09 SISTER, (OVARIAN) 09 SISTER, Age:56 (BREAST ) Family history: Arthritis 09 SISTER, Age:56 Family history: Asthma 09 SISTER, Age:56 Family history: Breast disease Family history: Thyroid disorder 09 SISTER, Age:56 History of - anemia 03 MOTHER, History of - respiratory disease 03 FATHER, 03 MOTHER, 09 SISTER, Age:56 No Family History of: Abdominal aortic aneurysm Edison's disease Aphasia Cancer of colon Cataract Chest pain Congenital heart disease Congestive heart failure Cystic fibrosis Dementia Dysphagia Family history: Allergy Family history: Alzheimer's disease Family history: Cardiovascular disease Family history: Coronary thrombosis Family history: Diabetes mellitus Family history: Gastrointestinal disease Family history: Glaucoma Family history: Hypertension Family history: Osteoporosis Headache Hearing loss Heart disease Hereditary disease History of - disorder History of drug abuse Human immunodeficiency virus (HIV) seropositivity Hypercholesterolemia Infertile Kidney disease Myocardial infarction Parkinson's disease Prostate cancer Psychotic disorder Seizure disorder Stroke Tuberculosis Visual impairment Physical Exam Vital Signs Vital Signs - First Documented 05/17/18 13:40 Temp 97.1 Pulse 99 Resp 18 B/P (MAP) 132/85 (101) Pulse Ox 99 Capillary Refill : Height, Weight, BMI Height: 5'2.00" Weight: 153lbs. 8.0oz. 69.383608gz; 28.1 BMI Method:Stated General Appearance: No Apparent Distress, WD/WN HEENT: PERRL/EOMI, TMs Normal Neck: Full Range of Motion, Normal Inspection Respiratory: No Accessory Muscle Use, No Respiratory Distress Extremity: Normal Capillary Refill, Normal Inspection, Other (posterior right hip pain. She is ambulatory to room 5. She is scheduled for a left knee replacement next week, she thought maybe she had injured her right hip because of favoring the left knee.) Neurologic/Psychiatric: Alert, Oriented x3, No Motor/Sensory Deficits Skin: Normal Color, Warm/Dry Progress/Results/Core Measures Results/Orders My Orders Orders - SHELBY LEGGETT APRN Hip, Right, 2 Views (05/17/18 14:02) Vital Signs/I&O 05/17/18 13:40 Temp 97.1 Pulse 99 Resp 18 B/P (MAP) 132/85 (101) Pulse Ox 99 Departure Impression Primary Impression: Right hip pain Disposition: HOME, SELF-CARE Condition: Stable Departure-Patient Inst. Decision time for Depature: 13:52 Referrals: KATARINA RUBIN MD (PCP/Family) Primary Care Physician Patient Instructions: Hip Pain Add. Discharge Instructions: 1. Follow up with occupational health. All discharge instructions reviewed with patient and/or family. Voiced understanding. SHELBY LEGGETT APRN May 17, 2018 13:53
[2018-05-17 14:33] VITALS: BP 132/85
--- NOTE | 2018-05-17 14:48 | Diagnostic Imaging Report ---
Clinical indication: Patient is status post fall a couple of months ago and fell on right side between a crate and wall. The patient has right hip and buttock pain. Exam: X-ray of the right hip, AP and frog-leg views. Comparison: CT scan of the chest, abdomen, and pelvis dated 01/04/2018. Findings: X-ray of the right hip shows no acute fracture or dislocation. There is again seen mild enthesopathy of the right greater trochanter. Remainder of the right hip is unremarkable. Limited visualization of the sacroiliac joint, pelvis and sacral region is unremarkable as visualized. Impression: Mild degenerative changes of the right hip with no acute fracture or dislocation. Dictated by: Dictated on workstation # [id number]
== END 2018-05-17 14:33 | disposition home or self-care (01) ==
LOC: EDUNIT# 13:35 → ER 13:36
DX: M25.551 Pain in right hip (principal); J43.9 Emphysema, unspecified; I10 Essential (primary) hypertension; K21.9 Gastro-esophageal reflux disease without esophagitis; F41.9 Anxiety disorder, unspecified; F32.9 Major depressive disorder, single episode, unspecified; Z80.1 Family history of malignant neoplasm of trachea, bronchus and lung; Z80.3 Family history of malignant neoplasm of breast; Z80.41 Family history of malignant neoplasm of ovary; Z87.19 Personal history of other diseases of the digestive system; Z88.5 Allergy status to narcotic agent; Z88.0 Allergy status to penicillin; Z88.2 Allergy status to sulfonamides; Z88.8 Allergy status to other drugs, medicaments and biological substances; Z88.1 Allergy status to other antibiotic agents; Z79.82 Long term (current) use of aspirin; Z90.710 Acquired absence of both cervix and uterus; W19.XXXA Unspecified fall, initial encounter; Y92.59 Other trade areas as the place of occurrence of the external cause; Y99.0 Civilian activity done for income or pay
CPT/HCPCS: 73502

== ENCOUNTER 2018-05-23 06:55 | Day surgery (SDC) | payer OTHER ==
--- NOTE | 2018-05-15 16:12 | HISTORY AND PHYSICAL ---
DATE OF SERVICE: 05/23/2018 ADMISSION HISTORY AND PHYSICAL DATE OF SURGERY: 05/23/2018. She is here for left knee arthroscopy and right subacromial injection. HISTORY: The patient is a 58-year-old female with complains of left knee and right shoulder pain. She reports left knee pain, swelling, catching and locking. She reports pain with activities. She reports pain, which is worse with stairs. She reports activity limitations because of the knee. She has had to rest at work in order to make it through the day. She also complains of pain in the right shoulder worse with overhead activities. She reports weakness and pain, but denies specific injuries. She denies neck pain, denies paresthesias due to functional impairment and failure to improve with conservative measures, the patient elected to proceed with surgical intervention. REVIEW OF SYSTEMS: No chest pain, no shortness of breath. No dysuria. PAST MEDICAL HISTORY: Pancreatitis, arthritis, osteoporosis, degenerative disk disease, hypertension, COPD. PAST SURGICAL HISTORY: Cholecystectomy, hysterectomy, pilonidal cyst excision and heart catheterization. FAMILY HISTORY: Noncontributory. PRIMARY CARE PROVIDER: Dr. Willis. MEDICATIONS: Enalapril, pantoprazole, alprazolam, aspirin, cyclobenzaprine, hydrocodone, amlodipine, hydrochlorothiazide. ALLERGIES: PENICILLIN AND MORPHINE. SOCIAL HISTORY: The patient is a current smoker. Denies alcohol use. LABORATORY DATA: X-rays reveal no evidence of fracture or dislocation in the left knee. Right shoulder demonstrates no acute or chronic changes. PHYSICAL EXAMINATION: GENERAL: The patient is well developed, well-nourished, in no acute distress. HEENT: Normocephalic, atraumatic. Pupils are equal, round and reactive to light. Oropharynx is clear. NECK: Supple. No lymphadenopathy. LUNGS: Clear to auscultation bilaterally. HEART: Regular rate and rhythm. ABDOMEN: Soft, nontender, nondistended. EXTREMITIES: Right shoulder demonstrates positive Ortiz sign. She has no gross weakness with abduction, external or internal rotation, but pain elicited. The left knee demonstrates moderate effusion. She is tender along the medial joint, has pain medially with a . She has marked patellofemoral crepitus and pain with patellar loading. Range of motion is 0/2/130. No varus valgus laxity. Negative anterior and posterior drawer. She ambulates with an antalgic gait. 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 PLAN: Left knee arthroscopy, partial medial meniscectomy, chondroplasty and right subacromial injection as well. The risks, benefits, alternatives and recovery were discussed at length with the patient. She understands and wishes to proceed. Job ID: [id number] DocumentID: [id number] Dictated Date: 05/14/2018 11:20:22 Electronic Development Technician Date: 05/14/2018 12:00:02 Dictated By: NOREEN GLYNN MD
[~2018-05-23] VITALS: Ht 157.5 cm; Wt 70.1 kg
[~2018-05-23 06:55] MED LIST changes: +BUPIVACAINE 0.5% 30 ML (SENSORCAINE) VIAL ONE; +morphine PF (DURAMORPH) 10 MG/10 ML AMP ONE
[2018-05-23 07:00] VITALS: BP 95/72
--- OUTSIDE RECORDS SUMMARY | 2018-05-23 07:16 | XMS REPORT | Continuity of Care Document ---
Author Author [facility] Organization [facility] Address Unknown Phone Unavailable Allergies Active Description Code Type Severity Reaction Onset Reported/Identified Relationship to Patient Clinical Status Yes doxycycline [id number] Drug Allergy Mild GI UPSET 05/17/2018 Yes morphine [id number] Drug Allergy Mild NAUSEA 05/17/2018 Yes Penicillins [id number] Drug Allergy Unknown N/A 05/17/2018 Yes sulfamethoxazole [id number] Drug Allergy Unknown NAUSEA 05/17/2018 Yes trimethoprim [id number] Drug Allergy Unknown NAUSEA 05/17/2018 Medications There is no data. Problems Date Dx Coded Attending Type Code Diagnosis Diagnosed By 10/22/2010 Ot 575.11 CHRONIC CHOLECYSTITIS 06/23/2011 Ot 305.1 06/23/2011 Ot 466.0 06/23/2011 [...] MD Ot 789.06 ABDOMINAL PAIN, EPIGASTRIC 07/22/2014 KATARINA RUBIN MD Ot 786.2 08/25/2014 KATARINA RUBIN MD Ot 786.2 11/23/2014 KATARINA RUBIN MD Ot 272.4 HYPERLIPIDEMIA NEC/NOS 11/23/2014 KATARINA RUBIN MD Ot 305.1 TOBACCO USE DISORDER 11/23/2014 KATARINA RUBIN MD Ot 401.9 HYPERTENSION NOS 11/23/2014 KATARINA RUBIN MD Ot 414.01 CORONARY ATHEROSCLEROSIS OF [place] CORON 11/23/2014 KATARINA RUBIN MD Ot 530.81 ESOPHAGEAL REFLUX 11/23/2014 KATARINA RUBIN [...] 07/23/2015 RAFAELA MON MD Ot M54.6 07/27/2015 CARYN KEY, KATARINA R Ot F17.210 NICOTINE DEPENDENCE, CIGARETTES, UNCOMPL 07/27/2015 CARYN KEY, KATARINA R Ot I10 ESSENTIAL (PRIMARY) HYPERTENSION 07/27/2015 KATARINA RUBIN MD R Ot K21.9 GASTRO-ESOPHAGEAL REFLUX DISEASE WITHOUT 07/27/2015 CARYN KEY, KATARINA R Ot K86.1 OTHER CHRONIC PANCREATITIS 07/27/2015 KATARINA RUBIN MD R Ot R10.11 RIGHT UPPER QUADRANT PAIN 07/27/2015 CARYN KEY, KATARINA R Ot Z23 ENCOUNTER FOR IMMUNIZATION 07/28/2015 KATARINA RUBIN MD R Ot E78.5 HYPERLIPIDEMIA, UNSPECIFIED 07/28/2015 KATARINA RUBIN MD R Ot F17.210 NICOTINE DEPENDENCE, CIGARETTES, UNCOMPL 07/28/2015 KATARINA RUBIN MD R Ot F41.9 ANXIETY DISORDER, UNSPECIFIED 07/28/2015 KATARINA RUBIN MD R Ot I10 ESSENTIAL (PRIMARY) HYPERTENSION 07/28/2015 CARYN KEY, KATARINA R Ot I25.10 ATHSCL HEART DISEASE OF [place] CORONARY 07/28/2015 CARYN KEY, KATARINA R Ot K21.9 GASTRO-ESOPHAGEAL REFLUX DISEASE WITHOUT 07/28/2015 CARYN KEY, KATARINA R Ot K86.1 OTHER CHRONIC PANCREATITIS 07/28/2015 KATARINA RUBIN MD R Ot R07.9 CHEST PAIN, UNSPECIFIED 07/28/2015 KATARINA RUBIN MD R Ot E78.5 07/28/2015 KATARINA RUBIN MD R Ot F17.210 07/28/2015 KATARINA RUBIN MD R Ot F41.9 07/28/2015 KATARINA RUBIN MD R Ot I10 07/28/2015 KATARINA RUBIN MD R Ot I25.10 07/28/2015 KATARINA RUBIN MD R Ot K21.9 07/28/2015 KATARINA RUBIN MD R Ot K86.1 07/28/2015 KATARINA RUBIN MD R Ot R07.9 03/28/2016 LUZMARIA KEY, SOPHIE Mitchell Ot F17.210 NICOTINE DEPENDENCE, CIGARETTES, UNCOMPL 03/28/2016 LUZMARIA KEY, SOPHIE T Ot R10.13 EPIGASTRIC PAIN 03/28/2016 LUZMARIA KEY, SOPHIE T Ot Z87.19 PERSONAL HISTORY OF OTHER DISEASES OF 03/29/2016 LUZMARIA KEY, SOPHIE T Ot F17.210 NICOTINE DEPENDENCE, CIGARETTES, UNCOMPL 03/29/2016 SOPHIE DUTTA MD T Ot R10.13 EPIGASTRIC PAIN 03/29/2016 LUZMARIA KEY, SOPHIE T Ot Z87.19 PERSONAL HISTORY OF OTHER DISEASES OF 03/30/2016 LUZMARIA KEY, SOPHIE T Ot F17.210 NICOTINE DEPENDENCE, CIGARETTES, UNCOMPL [...] OTHER DISEASES OF 12/23/2016 KATARINA RUBIN MD Ot 786.2 COUGH 12/23/2016 ELIESER KEY, RAFAELA Rice Ot M54.6 PAIN IN THORACIC SPINE 12/23/2016 SHELBY LEGGETT APRN Ot I10 ESSENTIAL (PRIMARY) HYPERTENSION 12/23/2016 SHELBY LEGGETT APRN Ot K86.1 OTHER CHRONIC PANCREATITIS 12/23/2016 SHELBY LEGGETT APRN Ot R10.13 EPIGASTRIC PAIN 12/23/2016 SHELBY LEGGETT APRN Ot Z79.82 PRISON (CURRENT) USE OF ASPIRIN 12/23/2016 SHELBY LEGGETT APRN Ot Z79.899 OTHER PRISON (CURRENT) DRUG THERAPY 12/23/2016 KATARINA RUBIN MD Ot 786.2 COUGH 12/23/2016 RAFAELA MON MD Ot M54.6 PAIN IN THORACIC SPINE 12/25/2016 SHELBY LEGGETT LABEL REWINDER Ot I10 ESSENTIAL (PRIMARY) HYPERTENSION 12/25/2016 LEGGETT, PETER J LABEL REWINDER Ot K86.1 OTHER CHRONIC PANCREATITIS 12/25/2016 SHELBY LEGGETT LABEL REWINDER Ot R10.13 EPIGASTRIC PAIN 12/25/2016 SHELBY LEGGETT LABEL REWINDER Ot Z79.82 QUARTER SUPERVISOR (CURRENT) USE OF ASPIRIN 12/25/2016 SHELBY LEGGETT LABEL REWINDER Ot Z79.899 OTHER QUARTER SUPERVISOR (CURRENT) DRUG THERAPY 12/29/2016 SHELBY LEGGETT LABEL REWINDER Ot I10 ESSENTIAL (PRIMARY) HYPERTENSION 12/29/2016 SHELBY LEGGETT LABEL REWINDER Ot K86.1 OTHER CHRONIC PANCREATITIS 12/29/2016 SHELBY LEGGETT LABEL REWINDER Ot R10.13 EPIGASTRIC PAIN 12/29/2016 SHELBY LEGGETT LABEL REWINDER Ot Z79.82 QUARTER SUPERVISOR (CURRENT) USE OF ASPIRIN 12/29/2016 SHELBY LEGGETT LABEL REWINDER Ot Z79.899 OTHER PRISON (CURRENT) DRUG THERAPY 12/28/2017 KATARINA RUBIN MD Ot 786.2 COUGH 12/28/2017 RAFAELA MON MD Ot M54.6 PAIN IN THORACIC SPINE 01/04/2018 KATARINA RUBIN MD Ot 786.2 COUGH 01/04/2018 RAFAELA MON MD, Ot M54.6 PAIN IN THORACIC SPINE 01/05/2018 [...] PERFORATION OR AB 01/30/2018 KATARINA RUBIN MD R Ot Z87.19 PERSONAL HISTORY OF OTHER DISEASES OF TH 01/30/2018 KATARINA RUBIN MD Ot Z90.49 ACQUIRED ABSENCE OF OTHER SPECIFIED PART 01/30/2018 KATARINA RUBIN MD R Ot Z90.710 ACQUIRED ABSENCE OF BOTH CERVIX AND UTER 05/17/2018 KATARINA RUBIN MD Ot 786.2 COUGH 05/17/2018 RAFAELA MON MD Ot M54.6 PAIN IN THORACIC SPINE 05/17/2018 KATARINA RUBIN MD Ot K57.30 DVRTCLOS OF LG INT W/O PERFORATION OR AB 05/17/2018 KATARINA RUBIN MD Ot Z87.19 PERSONAL HISTORY OF OTHER DISEASES OF TH 05/17/2018 KATARINA RUBIN MD Ot Z90.49 ACQUIRED ABSENCE OF OTHER SPECIFIED PART 05/17/2018 KATARINA RUBIN MD Ot Z90.710 ACQUIRED ABSENCE OF BOTH CERVIX AND UTER 05/21/2018 SHELBY LEGGETT APRN Ot F32.9 MAJOR DEPRESSIVE DISORDER, SINGLE EPISOD 05/21/2018 SHELBY LEGGETT APRN Ot F41.9 ANXIETY DISORDER, UNSPECIFIED 05/21/2018 SHELBY LEGGETT APRN Ot I10 ESSENTIAL (PRIMARY) HYPERTENSION 05/21/2018 SHELBY LEGGETT APRN Ot J43.9 EMPHYSEMA, UNSPECIFIED 05/21/2018 SHELBY LEGGETT APRN Ot K21.9 GASTRO-ESOPHAGEAL REFLUX DISEASE WITHOUT 05/21/2018 SHELBY LEGGETT APRN Ot M25.551 PAIN IN RIGHT HIP 05/21/2018 SHELBY LEGGETT APRN Ot W19.XXXA UNSPECIFIED FALL, INITIAL ENCOUNTER 05/21/2018 SHELBY LEGGETT APRN Ot Y92.[address] 05/21/2018 SHELBY LEGGETT APRN Ot Y99.0 CIVILIAN ACTIVITY DONE FOR INCOME OR PAY 05/21/2018 SHELBY LEGGETT APRN Ot Z79.82 PRISON (CURRENT) USE OF ASPIRIN 05/21/2018 SHELBY LEGGETT APRN Ot Z80.1 FAMILY HISTORY OF MALIG NEOPLASM OF TRAC 05/21/2018 SHELBY LEGGETT APRN Ot Z80.3 FAMILY HISTORY OF MALIGNANT NEOPLASM OF 05/21/2018 SHELBY LEGGETT LABEL REWINDER Ot Z80.41 FAMILY HISTORY OF MALIGNANT NEOPLASM OF 05/21/2018 SHELBY LEGGETT LABEL REWINDER Ot Z87.19 PERSONAL HISTORY OF OTHER DISEASES OF TH 05/21/2018 SHELBY LEGGETT LABEL REWINDER Ot Z88.0 ALLERGY STATUS TO PENICILLIN 05/21/2018 SHELBY LEGGETT LABEL REWINDER Ot Z88.1 ALLERGY STATUS TO OTHER ANTIBIOTIC AGENT 05/21/2018 SHELBY LEGGETT LABEL REWINDER Ot Z88.2 ALLERGY STATUS TO SULFONAMIDES STATUS 05/21/2018 SHELBY LEGGETT LABEL REWINDER Ot Z88.5 ALLERGY STATUS TO NARCOTIC AGENT STATUS 05/21/2018 SHELBY LEGGETT LABEL REWINDER Ot Z88.8 ALLERGY STATUS TO OTH DRUG/MEDS/BIOL SUB 05/21/2018 SHELBY LEGGETT APRN Ot Z90.710 ACQUIRED ABSENCE OF BOTH CERVIX AND UTER 05/21/2018 RENARD KEY, NOREEN Banks Ot Z01.818 ENCOUNTER FOR OTHER PREPROCEDURAL EXAMIN Procedures There is no data. Results Test [...] Complete urinalysis with reflex to culture - 04/28/17 15:36 Urine color determination YELLOW NRG Urine [...] urinalysis with reflex to culture NO NRG Methicillin resistant Staphylococcus aureus (MRSA) screening culture - 13:00 Methicillin resistant Staphylococcus aureus (MRSA) screening culture NEG NRG Encounters ACCT No. Visit Date/Time Discharge Status Pt. Type Provider Facility Loc./Unit Complaint [id number] 05/17/2018 13:36:00 05/17/2018 14:33:00 DIS Outpatient SHELBY LEGGETT APRN [facility] ER FALL;BACK AND HIP PAIN [id number] 05/17/2018 12:25:00 05/17/2018 14:00:00 DIS Outpatient RENARD KEY, NOREEN Banks [facility] PREOP LT KNEE CHONDROMALACIA,RT SHOULDER RTC TEAR [id number] 01/04/2018 13:32:00 01/04/2018 23:59:59 CLS Outpatient KATARINA RUBIN MD [facility] RAD HX OF CHRONIC PANCREATITIS [id number] 12/28/2017 15:27:00 12/28/2017 15:27:00 CAN Preadmit ESTRADA FRANCIS LABEL REWINDER [facility] LAB J20.8 [id number] 12/23/2016 14:02:00 12/23/2016 16:28:00 DIS Emergency SHELBY LEGGETT APRN [facility] ER ABDOMINAL PAIN [id number] 03/28/2016 03:17:00 03/28/2016 05:18:00 DIS Emergency SOPHIE DUTTA MD [facility] ER ABD PAIN [id number] 07/27/2015 16:15:00 07/28/2015 21:43:00 DIS Inpatient KATARINA RUBIN MD [facility] ICU CHEST PAIN [id number] 07/23/2015 20:40:00 07/27/2015 07:31:00 DIS Inpatient KATARINA RUBIN MD [facility] 4TH INTRACTABLE ABD PAIN [id number] 06/15/2015 09:16:00 06/15/2015 23:59:59 CLS Outpatient RAFAELA MON MD [facility] RAD THORAIC PAIN [id number] 11/21/2014 19:30:00 11/23/2014 13:50:00 DIS Outpatient KATARINA RUBIN MD [facility] CATH CHEST PAIN; HYPERTENSIVE URGENCY [id number] 07/17/2014 17:11:00 07/17/2014 21:08:00 DIS Emergency MARK QUACH MD [facility] ER R SIDE PAIN [id number] 04/10/2014 12:05:00 04/10/2014 23:59:59 CLS Outpatient KATARINA RUBIN MD [facility] RAD COUGH FOR LAST 6 WEEKS [id number] 07/31/2013 10:48:00 08/04/2013 09:00:00 DIS Inpatient KATARINA RUBIN MD [facility] 4TH [id number] 07/30/2013 15:14:00 07/30/2013 23:59:59 CLS Outpatient KATARINA RUBIN MD [facility] RAD [id number] 07/15/2013 16:30:00 07/17/2013 11:20:00 DIS Inpatient KATARINA RUBIN MD [facility] 4TH [id number] 05/23/2018 09:00:00 PEN Preadmit ZAFUTA MD, NOREEN Rodriguez [facility] LT KNEE CHONDROMALACIA, RT SHOULDER ROTATOR CUFF [id number] 02/04/2015 13:17:00 Document Registration [id number] 11/16/2012 13:59:00 Document Registration [id number] 10/05/2012 09:43:00 Document Registration [id number] 09/26/2012 14:43:00 Document Registration [id number] 08/27/2011 10:30:00 Document Registration [id number] 04/22/2011 14:55:00 Document Registration [id number] 10/18/2010 19:46:00 Document Registration [id number] 10/15/2010 11:01:00 Document Registration [id number] 10/14/2010 07:39:00 Document Registration
[2018-05-23] MEDS ORDERED: LIDOCAINE 1% INJ 20 ML 20 ML VIAL ONE (07:17)
[2018-05-23] MEDS ORDERED: DEXAMETHASONE 10 MG/ML (DECADRON) 1 ML VIAL ONE ×2 (07:17→08:21)
[2018-05-23] MEDS ORDERED: LACTATED RINGERS 1,000 ML IV PRN (07:17)
[2018-05-23] MEDS ORDERED: CLINDAMYCIN 600 MG/50 ML IVPB 50 ML IV ONE (07:30)
[2018-05-23] MEDS ORDERED: oxyCODONE/APAP 5/325MG (PERCOCET 5) TABLET PO PRN (07:30)
--- NOTE | 2018-05-23 07:32 | Progress Note-Pre Operative ---
Pre-Operative Progress Note H&P Reviewed The H&P was reviewed, patient examined and no changes noted. Date Seen by Provider: May 23, 2018 Time Seen by Provider: 07:32 Date H&P Reviewed: May 23, 2018 Time H&P Reviewed: 07:32 Pre-Operative Diagnosis: left knee chondromalacia patella and right rotator cuff syndrome NOREEN GLYNN MD May 23, 2018 07:32
--- NOTE | 2018-05-23 07:34 | Progress Note-Post Operative ---
Post-Operative Progess Note Surgeon (s)/Agriculture Laborer (s) Surgeon NOREEN GLYNN MD Agriculture Laborer: Erwin Dave Pre-Operative Diagnosis left knee chondromalacia patella and right rotator cuff syndrome Post-Operative Diagnosis left knee chondromalacia patella, medial femoral condyle and lateral femoral condyle and lateral meniscal tear and right rotator cuff syndrome Procedure & Operative Findings Date of Procedure 05/23/18 Procedure Performed/Findings left knee arthroscopic chondroplasty patella, medial femoral condyle, lateral condyle and partial lateral meniscectomy and right subacromial injection Anesthesia Type GETA Estimated Blood Loss Estimated blood loss (mL): minimal Specimens/Packing Specimens Removed none Packing: none NOREEN GLYNN MD May 23, 2018 07:34
[2018-05-23] MEDS ORDERED: MIDAZOLAM 2 MG/2 ML (VERSED) VIAL IV ONE (07:45)
[2018-05-23] MEDS ORDERED: SCOPOLAMINE 1.5 MG (TRANSDERM-SCOP) PATCH TOP ONE (07:45)
[2018-05-23] MEDS ORDERED: ONDANSETRON 4 MG/2 ML (SDV) Z0FRAN IV ONE (07:45)
[2018-05-23] MEDS ORDERED: FAMOTIDINE 20MG/2ML IV (PEPCID) IV ONE (07:45)
[2018-05-23] MEDS ORDERED: MIDAZOLAM 2 MG/2 ML (VERSED) VIAL ONE (08:21)
[2018-05-23] MEDS ORDERED: fentaNYL INJECTION 100 MCG/2 ML AMP ONE (08:21)
[2018-05-23] MEDS ORDERED: SEVOFLURANE (ULTANE) 15 ML INHAL SOLN ONE (08:21)
[2018-05-23] MEDS ORDERED: proPOfol 200 MG/20 ML (DIPRIVAN) VIAL IV ONE (08:21)
[2018-05-23] MEDS ORDERED: LIDOCAINE PF 2% 2 ML (XYLOCAINE) VIAL ONE ×2 (08:21→08:59)
[2018-05-23] MEDS ORDERED: ONDANSETRON 4 MG/2 ML (SDV) Z0FRAN ONE (08:21)
[2018-05-23] MEDS ORDERED: ONDANSETRON 4 MG/2 ML (SDV) Z0FRAN IVP PRN (09:15)
[2018-05-23] MEDS ORDERED: DROPERIDOL 2.5 MG/ML (INAPSINE) AMP IVP ONE (09:15)
[2018-05-23] MEDS ORDERED: fentaNYL INJECTION 100 MCG/2 ML AMP IVP ONE (09:15)
[2018-05-23] MEDS ORDERED: HYDROmorphone 2 MG/ML VIAL (DILAUDID) IV ONE (09:15)
[2018-05-23] MEDS ORDERED: PROMETHAZINE INJ 25 MG/ML (PHENERGAN) AMP IVP ONE (09:15)
[2018-05-23] MEDS ORDERED: MEPERIDINE (DEMEROL) INJ 50 MG/ML IVP ONE (09:15)
[2018-05-23 10:10] VITALS: BP 121/76
[2018-05-23 10:40] VITALS: BP 123/70
[2018-05-23] MEDS ORDERED: OXYC-471 PO (10:46)
--- NOTE | 2018-05-23 10:58 | Anesthesia-General Post-Op ---
General Patient Condition Mental Status/LOC: Same as Preop Cardiovascular: Satisfactory Nausea/Vomiting: Absent Respiratory: Satisfactory Pain: Controlled Complications: Absent Post Op Complications Complications None Follow Up Care/Instructions Patient Instructions None needed. Anesthesia/Patient Condition Patient Condition Patient is doing well, no complaints, stable vital signs, no apparent adverse anesthesia problems. No complications reported per nursing. RITU CROSS CRNA May 23, 2018 10:58
[2018-05-23 11:15] VITALS: BP 123/61
[2018-05-23 11:30] VITALS: BP 123/61
--- NOTE | 2018-05-23 11:31 | Physical Therapy Ortho Eval ---
PT Orthopedic Evaluation Type of Surgery Knee Scope left knee scope Prior Level of Function Current Living Status: Significant Other Locomotion (Upon Admit): Independent Established Durable Medical Eq: Front Wheeled Walker Subjective Subjective Patient sitting EOB pre tx, agrees to PT, has no pain at rest. Entry Into Home: Ramp Motor Control Motor Control: Motor Control WNL ROM left knee extension +5 degrees, flexion 65 degrees Strength NT Transfer Transfers (B, C, W/C) (FIM): 5 Gait Gait Assistive Device: FWW Left Lower Extremity: Left Weight Bearing Status LLE: Weight Bearing/Tolerated Gait (FIM): 2 Distance: 50', 100' Gait Level of Assist: 5 Summary/Comments Patient ambulates slowly but steady, decreased stance time on left side, no LOB. Patient also went up and down 1 step using a rolling walker with SBA and cues for foot placement. Treatment Rendered Treatment: Therapeutic Exercises, Gait Train, Step Train Exercise Instruction: Quad Sets, Heel Slides, Ankle Pumps Assessment/Goals Goal Time Frame: 1 Visit Plan Treatment Plan: Discharge PT/Family Agrees to Plan: Yes Time Time In: 1105 Time Out: 1125 Total Billed Treatment Time: 20 Billed Treatment Time 1 visit EVL 20' Yes PT/OT Therapy GCodes Therapy Functional Limitation: Physical Therapy Functional Limitation-Current Charge Code: MOBCUR Modifier: CI Functional Limitation-Goal Charge Code: MOBGOAL Modifier: CI Functional Limitation-D/C Charge Codes: MOBDC Modifier: CI BRITTANY GUPTA PT May 23, 2018 11:30
--- NOTE | 2018-05-23 11:55 | OPERATIVE REPORT ---
DATE OF SERVICE: 05/23/2018 PREOPERATIVE DIAGNOSES: 1. Left knee chondromalacia of the patella. 2. Right rotator cuff syndrome. POSTOPERATIVE DIAGNOSES: 1. Left knee chondromalacia of the patella. 2. Left knee chondromalacia of the medial femoral condyle. 3. Left knee chondromalacia of the lateral femoral condyle. 4. Left knee lateral meniscal tear. 5. Right rotator cuff syndrome. PROCEDURES: 1. Left knee arthroscopic partial lateral meniscectomy. 2. Left knee arthroscopic chondroplasty medial femoral condyle. 3. Left knee arthroscopic chondroplasty of the lateral femoral condyle. 4. Left knee arthroscopic chondroplasty of the patella. 5. Right subacromial injection. SURGEON: Devin Glynn MD. SANFORIZER: JAZMIN Domínguez, who assisted throughout the procedure and closed the incisions. ANESTHESIA: General endotracheal by Stephane Zarate CRNA. TOURNIQUET TIME: Not applicable. ESTIMATED BLOOD LOSS: Minimal. DRAINS: None. COMPLICATIONS: None. POSTOP PLANS: Routine arthroscopy protocol. The patient was transferred to the recovery room awake and in stable condition. STATEMENT OF MEDICAL NECESSITY: The patient is a 58-year-old female with the complaints of left anterior knee pain, catching, locking and swelling. She had a marked effusion. She had pain with patellar loading. She has tried rest, activity modifications and anti-inflammatories without relief. She also complained of pain in the right shoulder, worse with overhead activities. She had weakness with abduction and external rotation and requested an injection while under anesthesia in her right subacromial space. Examination under anesthesia of the left knee demonstrated range of motion 0/0/135 with a negative Comfort, negative anterior and posterior drawer. No varus or valgus laxity and negative pivot shift. Arthroscopic findings demonstrated grade II chondral flaps inferiorly in the 10 x 10 area on the patella. The trochlea demonstrated no gross chondral abnormalities. The medial and lateral gutters were clear. The ACL and PCL were intact. The medial compartment demonstrated grade II chondral flaps of the central portion of the femoral condyle in a 10 x 10 area. The lateral compartment demonstrated a tear of the body and anterior horn of the meniscus involving approximately one third of the anterior horn and body. In addition, there were grade II chondral flaps of the central portion of the femoral condyle in a 10 x 10 area. DESCRIPTION OF PROCEDURE: After risks and benefits of procedure were discussed and questions were answered, an informed consent was signed and placed on the chart. The operative site was confirmed in the preoperative holding area initialed by the surgeon. The patient was then transported to the operating room. After adequate level of general endotracheal anesthetic was obtained, a timeout was called confirming the operative sites. Under sterile conditions, the right subacromial space was injected with 2 mL of lidocaine, 2 mL of Marcaine and 8 mg of Decadron. An examination under anesthesia was then performed of the left knee with the above findings noted. Left lower extremity was prepped and draped in the usual sterile fashion. The knee was injected with 60 mL of fluid and a standard inferolateral portal was placed with the arthroscope under direct visualization, inferior medial portal was created. The menisci and cruciates were carefully probed with the above findings noted. The unstable chondral flaps of the patella were debrided with shaver back to a stable edge. The scope was redirected into the medial compartment and the unstable chondral flaps of the medial femoral condyle were debrided with a shaver back to a stable edge. Scope was then redirected into the lateral compartment. The unstable chondral flaps of the lateral femoral condyle were debrided with shaver back to a stable edge and the anterior horn and body of the lateral meniscus was debrided with a biter and a shaver removing approximately one-third of the body and anterior horn. This was carefully probed with no further tearing or instability noted. The knee was copiously irrigated and the portal sites were closed with 4-0 nylon in a simple interrupted fashion. The port sites were infiltrated with plain Marcaine. A soft dressing was applied and the patient was transferred to the recovery room awake and in stable condition. Job ID: [id number] DocumentID: [id number] Dictated Date: 05/23/2018 09:11:39 Podiatric Medicine Doctor Date: 05/23/2018 11:55:20 Dictated By: DEVIN GLYNN MD
== END 2018-05-23 11:30 | disposition home or self-care (01) ==
LOC: SDC 06:55
PROVIDERS: ATTEND Orthopaedic Surgery
DX: M22.42 Chondromalacia patellae, left knee (principal); M23.8X2 Other internal derangements of left knee; M75.101 Unspecified rotator cuff tear or rupture of right shoulder, not specified as traumatic; I10 Essential (primary) hypertension; J44.9 Chronic obstructive pulmonary disease, unspecified; M81.0 Age-related osteoporosis without current pathological fracture; Z79.899 Other long term (current) drug therapy; Z79.82 Long term (current) use of aspirin; F17.210 Nicotine dependence, cigarettes, uncomplicated; K21.9 Gastro-esophageal reflux disease without esophagitis

== ENCOUNTER → 2018-10-18 | Outpatient (CLI) | payer OTHER ==
[~2018-10-18] MED LIST changes: -AMLO5TAB7 PO; +AMLO5TAB9 PO; -BUPIVACAINE 0.5% 30 ML (SENSORCAINE) VIAL ONE; +OXYC-471 PO; -morphine PF (DURAMORPH) 10 MG/10 ML AMP ONE
--- NOTE | 2018-10-18 10:58 | Diagnostic Imaging Report ---
PROCEDURE: CT abdomen without contrast. TECHNIQUE: Multiple contiguous axial images were obtained through the abdomen without the use of intravenous contrast. INDICATION: Bloating and left-sided upper abdominal pain. Correlation is made with prior CT from 07/23/2015. The lung bases are clear. No discrete liver mass is identified. The gallbladder is surgically absent. No biliary duct dilatation is seen. The pancreas and spleen are unremarkable. No adrenal mass is detected. No renal calculi or hydronephrosis is identified. Aorta is calcified but nonaneurysmal. Visualized abdominal bowel loops appear to be normal caliber. Moderate stool in the colon. No ascites is seen. Imaging of the pelvis was not performed. There is no free air or fluid collection identified. IMPRESSION: Unremarkable noncontrast CT of the abdomen. Dictated by: Dictated on workstation # [id number]
== END ==
LOC: RAD 09:43
PROVIDERS: ATTEND Nurse Practitioner Family
DX: R14.0 Abdominal distension (gaseous) (principal); R10.12 Left upper quadrant pain; Z90.49 Acquired absence of other specified parts of digestive tract
CPT/HCPCS: 74150

== ENCOUNTER → 2019-07-01 | Outpatient (CLI) | payer OTHER ==
[~2019-07-01] VITALS: Ht 157 cm; Wt 75.0 kg
[~2019-07-01] MED LIST changes: +CATHETER FLUSH 10 ML SYR IV PRN; +REGADENOSON 0.4 MG/5 ML SYR (LEXISCAN) IV ONE
[2019-07-01 09:34] VITALS: BP 124/81
[2019-07-01 09:39] VITALS: BP 136/75
--- NOTE | 2019-07-01 14:28 | STRESS TEST ---
DATE OF SERVICE: 07/01/2019 LEXISCAN MYOVIEW STRESS TEST REPORT REFERRING PHYSICIAN: Dr. Willis. Baseline heart rate is 48, baseline blood pressure is 124/81. Baseline EKG is sinus rhythm with no ischemic changes. In summary, the patient was injected with 10.58 mCi of technetium-99 Myoview and the resting images were obtained. Then, the patient received 0.4 mg of Lexiscan followed by 33.0 mCi of technetium-99 Myoview. Throughout the test, there were no EKG changes. The resting and stress images were reviewed and compared in the short axis, horizontal long axis, and vertical long axis views. Review of the images showed some motion artifact affecting the quality of the images. Overall, there was no significant ischemia or infarction noted. SSS is 1, SDS 1, TID value 0.88. On the gated images, the left ventricle appeared to be in normal size with normal contractility. Calculated ejection fraction 60%. CONCLUSION: 1. The patient tolerated Lexiscan well. 2. Motion artifact affecting the quality of the images. Overall, there was no significant ischemia or infarction on SPECT images. 3. Normal left ventricular size with normal contractility. Calculated ejection fraction 60%. Job ID: [id number] DocumentID: [id number] Dictated Date: 07/01/2019 12:08:07 Motion Graphics Artist Date: 07/01/2019 14:27:09 Dictated By: CHINA MORIN MD
== END ==
LOC: CARD 07:27
PROVIDERS: ATTEND Internal Medicine Cardiovascular Disease
DX: I05.8 Other rheumatic mitral valve diseases (principal); I25.10 Atherosclerotic heart disease of native coronary artery without angina pectoris; E78.2 Mixed hyperlipidemia; I10 Essential (primary) hypertension; I65.23 Occlusion and stenosis of bilateral carotid arteries
CPT/HCPCS: 78452; 93017; 93306

== ENCOUNTER → 2020-03-18 | Outpatient (CLI) | payer OTHER ==
[~2020-03-18] MED LIST changes: +ACHYD1T PO; -CATHETER FLUSH 10 ML SYR IV PRN; -HYDR-3820 PO; -REGADENOSON 0.4 MG/5 ML SYR (LEXISCAN) IV ONE
[2020-03-18 12:58] LABS: BUN/CREATININE RATIO 8; CREATININE SERUM 0.83 MG/DL (0.60-1.30); GFR ESTIMATED > 60
== END ==
LOC: LAB 11:44
PROVIDERS: ATTEND Orthopaedic Surgery
DX: D64.9 Anemia, unspecified (principal)
CPT/HCPCS: 36415; 82565; 84520

== ENCOUNTER → 2021-09-02 | Outpatient (CLI) | payer OTHER ==
[~2021-09-02] MED LIST changes: +AMLO-250 PO; -AMLO5TAB9 PO; +CYCL10TA25 PO; -CYCL10TA9 PO; -ENAL20TA PO; +ENAL20TA16 PO; -OXYC-471 PO; +OXYC1TAB11 PO; +PANT20TA18 PO; -PANT20TA3 PO
--- NOTE | 2021-09-02 11:47 | Diagnostic Imaging Report ---
EXAMINATION: Cervical spine at 10:21 a.m. INDICATION: Neck pain, neck injury. Three views were obtained. There are no prior cervical spine examinations available for comparison. FINDINGS: The lateral view shows the vertebral body heights and alignment to be generally within normal limits. The intervertebral spaces are well maintained. There is no fracture or acute bony abnormality appreciated. There is no sign of retropharyngeal edema. The lung apices are clear. IMPRESSION: There is no evidence for an acute bony abnormality. Dictated by: Dictated on workstation # [id number]
== END ==
LOC: RAD 09:47
PROVIDERS: ATTEND Family Medicine
DX: Z02.71 Encounter for disability determination (principal); S19.9XXA Unspecified injury of neck, initial encounter; X58.XXXA Exposure to other specified factors, initial encounter
CPT/HCPCS: 72040

== ENCOUNTER → 2021-11-22 | Outpatient (CLI) | payer OTHER ==
[~2021-11-22] MED LIST changes: +BISA-89 PO; -BISA5TAB49 PO
--- NOTE | 2021-11-22 10:40 | Diagnostic Imaging Report ---
INDICATION: Low back pain. TIME OF EXAM: 9:44 AM 3 views lumbar spine were obtained. FINDINGS: Curvature and alignment is normal. Vertebral body heights are well-maintained. No acute compression fracture seen. There is generalized degenerative disc disease, greatest at L1-L2 level. Atherosclerotic calcifications and abdominal aorta are noted. IMPRESSION: Lumbar spondylosis. No acute bony abnormality is detected. Dictated by: Dictated on workstation # [id number]
== END ==
LOC: RAD 09:26
PROVIDERS: ATTEND Family Medicine
DX: Z02.71 Encounter for disability determination (principal); M47.816 Spondylosis without myelopathy or radiculopathy, lumbar region
CPT/HCPCS: 72100

== ENCOUNTER → 2022-02-02 | Outpatient (CLI) | payer OTHER ==
--- NOTE | 2022-02-02 15:11 | Diagnostic Imaging Report ---
INDICATION: Chronic neck pain and right shoulder pain. EXAMINATION: Cervical spine MRI without contrast on 02/02/2022. FINDINGS: The cervicomedullary junction is unremarkable. The visualized cord signal is preserved. Alignment of the spine is maintained with no fractures or subluxations. C2-C3: Unremarkable. C3-C4: Unremarkable. C4-C5: There is a right paracentral spur/disc complex. There is bilateral facet hypertrophy. There is mild bilateral neuroforaminal stenosis with mild to moderate central narrowing. C5-C6: There is a mild broad-based bulging disc. There is bilateral facet hypertrophy with mild central stenosis. There is moderate narrowing of the left neural foramen with mild narrowing on the right. C6-C7: There is a broad-based bulging disc. There is bilateral facet hypertrophy. There is mild central stenosis with mild left neuroforaminal narrowing. C7-T1: Unremarkable. The prevertebral soft tissues appear unremarkable. IMPRESSION: Right paracentral spur/disc complex at the C4-C5 level causing mild to moderate central stenosis with multilevel areas of mild to moderate neuroforaminal stenosis as above. A left paracentral spur/disc complex at C6-C7 causes mild central narrowing as well. Dictated by: Dictated on workstation # [id number]
--- NOTE | 2022-02-02 17:01 | Diagnostic Imaging Report ---
PROCEDURE: MRI right joint upper extremity without contrast. TECHNIQUE: Multiplanar, multisequence non contrast-enhanced MRI of the right upper extremity was accomplished. INDICATION: Chronic neck pain and right shoulder pain. COMPARISON: None FINDINGS: No acute fracture is seen in the right shoulder. Alignment appears normal. There is no significant joint effusion. The supraspinatus tendon demonstrates a full-thickness tear measuring about 2.2 cm wide with medial retraction to the dome of the humeral head by about 2.9 cm. The infraspinatus tendon is also involved in this tear at the anterior fibers with additional high-grade partial-thickness tearing at the articular surface. The teres minor tendon is intact. The subscapularis tendon appears intact. There is moderate atrophy of the supraspinatus and infraspinatus musculature. The long head of the biceps tendon is not well seen at the intra-articular portion and may be torn. The glenoid labrum is suboptimally evaluated in the absence of intra-articular contrast. No paralabral cyst is seen. The acromion has a slightly curved undersurface and mild subacromial spurring. The coracoclavicular and coracoacromial ligaments are intact. There are mild degenerative changes in the acromioclavicular joint. IMPRESSION: 1. Moderate sized full-thickness tear in the right rotator cuff with additional high-grade partial-thickness tearing, and atrophy of the supraspinatus and infraspinatus musculature. 2. The intra-articular long head of the biceps tendon is not well seen and may be torn. 3. Degenerative changes in the acromioclavicular joint with mild subacromial spurring. Dictated by: Dictated on workstation # [id number]
== END ==
LOC: RAD 01-27 09:30
PROVIDERS: ATTEND Orthopaedic Surgery
DX: M75.121 Complete rotator cuff tear or rupture of right shoulder, not specified as traumatic (principal); M19.011 Primary osteoarthritis, right shoulder; M75.41 Impingement syndrome of right shoulder
CPT/HCPCS: 72141; 73221

== ENCOUNTER 2022-03-20 00:58 | Emergency (ER) | payer OTHER ==
[2022-03-20 01:09] VITALS: BP 162/71
[2022-03-20] MEDS ORDERED: ACETAMINOPHEN 500 MG TAB (TYLENOL) PO ONE (01:30)
--- NOTE | 2022-03-20 02:11 | ED Abdominal Pain ---
General Chief Complaint: Abdominal/GI Problems Stated Complaint: ABD PAIN,ABD SWELLING,LEG/FEET SWELLING Nursing Triage Note: TO ED VIA POV AND AMBULATORY TO ROOM 6 WITH C/O ABDOMINAL PAIN FOR YEARS AND SWELLING IN ABD AREA FOR "QUITE A WHILE". Source of Information: Patient Exam Limitations: No Limitations History of Present Illness Date Seen by Provider: Mar 20, 2022 Time Seen by Provider: 01:35 Initial Comments Patient is a 62yo female who presents to the ER with a complaint of diffuse abdominal pain. She initially states her issues have been going on for "a year and a half" and then later in the interview, mentions she has had these symptoms since "2012". SHe complains of abdominal bloating. No back or bloody stool. No vomiting. SHe took a hydrocodone earlier in the evening. Denies dysuria, urgency or frequency. SHe states she has been to multiple providers and Names also multiple GI providers - and none of them can "tell me whats wrong with me". I asked her if she has ever been to [facility] or looked into a gastric pacemaker for gastroparesis - she has not. No change in her pain from its usual tonight. All other ROS reviewed and neg except as stated. Timing/Duration: Constant Severity/Quality: Severe ("10") Location: Generalized Abdomen Radiation: No Radiation Activities at Onset: Sleeping Modifying Factors: Improves With Other (holding her right side) Associated Symptoms: Back Pain (chronic) Allergies and Home Medications Allergies Coded Allergies: doxycycline (Verified Allergy, Mild, GI UPSET, 05/17/18) morphine (Verified Allergy, Mild, NAUSEA, 05/17/18) Penicillins (Verified Allergy, Unknown, 05/17/18) sulfamethoxazole (Verified Allergy, Unknown, NAUSEA, 05/17/18) PT REPORTS EMESIS WITH EVERY DOSE TAKEN, REGARDLESS OF FOOD INTAKE trimethoprim (Verified Allergy, Unknown, NAUSEA, 05/17/18) PT REPORTS EMESIS WITH EVERY DOSE TAKEN, REGARDLESS OF FOOD INTAKE Patient Home Medication List Home Medication List Reviewed: Yes Alprazolam (Alprazolam) 1 Mg Tablet, 1 MG PO Q6H PRN for ANXIETY, (Reported) Entered as Reported by: BALDOMERO BRAND on 05/17/18 1246 Amlodipine Besylate (Amlodipine Besylate) 5 Mg Tablet, 2.5 MG PO DAILY, (Reported) Entered as Reported by: BALDOMERO BRAND on 05/17/18 1246 Aspirin (Aspirin) 81 Mg Tab.chew, 81 MG PO DAILY, (Reported) Entered as Reported by: KARISHMA CHAN on 07/24/15 0943 Bisacodyl (Laxative) 5 Mg Tablet, 5-10 MG PO DAILY, (Reported) Entered as Reported by: BALDOMERO BRAND on 05/17/18 124 Cyclobenzaprine HCl (Cyclobenzaprine HCl) 10 Mg Tablet, 10 MG PO TID PRN for SPASMS, (Reported) Entered as Reported by: BALDOMERO BRAND on 05/17/18 124 Enalapril Maleate (Enalapril Maleate) 20 Mg Tablet, 20 MG PO HS, (Reported) Entered as Reported by: KARISHMA CHAN on 07/24/15 09 Hydrochlorothiazide (Hydrochlorothiazide) 12.5 Mg Tablet, 12.5 MG PO DAILY, (Reported) Entered as Reported by: BALDOMERO BRAND on 05/17/18 124 Multivitamin (Daily Vitamin Formula) 1 Each Tablet, 1 EACH PO DAILY, (Reported) Entered as Reported by: BALDOMERO BRAND on 05/17/18 1246 Ondansetron (Ondansetron Odt) 8 Mg Tab.rapdis, 8 MG PO PRN, (Reported) Entered as Reported by: BALDOMERO BRAND on 05/17/18 124 Oxycodone HCl/Acetaminophen (Oxycodone-Acetaminophen 5-325) 1 Each Tablet, 1 EACH PO Q4H PRN for PAIN-MODERATE Prescribed by: KIT MATTSON on 05/23/18 1046 Pantoprazole Sodium (Pantoprazole Sodium) 20 Mg Tablet.dr, 20 MG PO BID, (Reported) Entered as Reported by: BALDOMERO BRAND on 05/17/18 124 Review of Systems Review of Systems Constitutional: see HPI EENTM: No Symptoms Reported Respiratory: No Symptoms Reported Cardiovascular: No Symptoms Reported Gastrointestinal: Abdomen Distended, Abdominal Pain Genitourinary: No Symptoms Reported Musculoskeletal: no symptoms reported Skin: no symptoms reported All Other Systems Reviewed Negative Unless Noted: Yes Past Hqowfyc-Ihrlcs-Kokrfo Hx Patient Social History Tobacco Use?: Yes Tobacco type used: Cigarettes Smoking Status: Current Everyday Smoker Substance use?: No Alcohol Use?: No Immunizations Up To Date Tetanus Booster (TDap): More than 5yrs PED Vaccines UTD: No COVID19 Vaccine Stable Helper: STATES HAS HAD 2 VACCINES PLUS 2 BOOSTERS Seasonal Allergies Seasonal Allergies: No Past Medical History Surgeries: Yes (PANCREATIC STENT AND REMOVAL; CARPAL TUNNEL, ) Gallbladder, Hysterectomy Respiratory: Yes Chronic Bronchitis, Emphysema Currently Using CPAP: No Currently Using BIPAP: No Cardiac: Yes Hypertension Neurological: No Reproductive Disorders: No 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 Sexually Transmitted Disease: No HIV/AIDS: No Gastrointestinal: Yes Gastroesophageal Reflux, Chronic Constipation, Diverticulosis, Pancreatitis Musculoskeletal: Yes Degenerate Disk Disease, Arthritis, Chronic Back Pain Endocrine: No Loss of Vision: Denies Hearing Impairment: Denies Cancer: No Psychosocial: Yes Sleep Difficulties, Anxiety, Depression Integumentary: No Blood Disorders: No Adverse Reaction/Blood Tranf: No (N/A) Family Medical History Alcoholism 03 FATHER, , Onset:Unknown Cancer 03 FATHER, (LUNG) 03 MOTHER, (LUNG) 09 SISTER, (OVARIAN) 09 SISTER, Age:56 (BREAST ) Family history: Arthritis 09 SISTER, Age:56 Family history: Asthma 09 SISTER, Age:56 Family history: Breast disease Family history: Thyroid disorder 09 SISTER, Age:56 History of - anemia 03 MOTHER, History of - respiratory disease 03 FATHER, 03 MOTHER, 09 SISTER, Age:56 No Family History of: Abdominal aortic aneurysm [place]'s disease Aphasia Cancer of colon Cataract Chest pain Congenital heart disease Congestive heart failure Cystic fibrosis Dementia Dysphagia Family history: Allergy Family history: Alzheimer's disease Family history: Cardiovascular disease Family history: Coronary thrombosis Family history: Diabetes mellitus Family history: Gastrointestinal disease Family history: Glaucoma Family history: Hypertension Family history: Osteoporosis Headache Hearing loss Heart disease Hereditary disease History of - disorder History of drug abuse Human immunodeficiency virus (HIV) seropositivity Hypercholesterolemia Infertile Kidney disease Myocardial infarction Parkinson's disease Prostate cancer Psychotic disorder Seizure disorder Stroke Tuberculosis Visual impairment Physical Exam Vital Signs Vital Signs - First Documented 03/20/22 01:09 Temp 35.7 Pulse 69 Resp 16 B/P (MAP) 162/71 (101) Pulse Ox 97 O2 Delivery Room Air Capillary Refill : Less Than 3 Seconds Height/Weight/BMI Height: 5'2.00" Weight: 154lbs. 8.0oz. 70.614416fl; 30.42 BMI Method:Stated General Appearance: WD/WN, no apparent distress HEENT: PERRL/EOMI Neck: normal inspection Respiratory: lungs clear, normal breath sounds, no respiratory distress, no accessory muscle use Cardiovascular: regular rate, rhythm Gastrointestinal: soft, other (patient very apprehensive with exam; even to light palpation of the skin and palpation of bony prominences of the anterior pelvis she is writhing and moaning with "pain". neg heel tap. neg psoas. neg obturator. no discoloration of the skin of the anterior abdominal wall. femoral pulses 2+ bilat. Bowel sounds are present.) Extremities: normal range of motion, non-tender, normal inspection Neurologic/Psychiatric: no motor/sensory deficits, alert, normal mood/affect, oriented x 3 Skin: normal color, warm/dry Progress/Results/Core Measures Results/Orders My Orders Orders - RAOUL RAMIREZ MD Ed Iv/Invasive Line Start (03/20/22 01:51) Vital Signs/I&O 03/20/22 01:09 Temp 35.7 Pulse 69 Resp 16 B/P (MAP) 162/71 (101) Pulse Ox 97 O2 Delivery Room Air Blood Pressure Mean: 101 Progress Progress Note : Time: 02:35 Progress Note Patient became upset with 1 attempt at IV access by her nurse Karmen. She did not want to have further sticks. I went in to talk to Ms. Amaral and she stated that she would just drive over to [place]. I counseled her that we could not make any assessments about her abdominal pain without laboratory studies or evaluation. She asked me could not look at her lab work from a month ago. I advised her that since that time many things could have changed regarding her internal chemistry. That I would not make any treatment recommendations or even an assessment without knowing her labs. She was very frustrated stating that this has been going on since "2012". She is just very tired of having pain. She mentions that she seen several GI doctors and she is tired of "getting the run around". I advised her that without further evaluation there was a risk of missing many things going on in her abdomen and that the risk ultimately could be . She verbalized understanding, wishes to sign AMA paperwork, ambulated out of the department under her own power. Departure Impression Primary Impression: Chronic abdominal pain Disposition: AGAINST MEDICAL ADVICE Condition: Against Medical Advice Departure-Patient Inst. Referrals: BOY REDMOND MD (PCP/Family) Primary Care Physician RAOUL RAMIREZ MD Mar 20, 2022 02:11
== END 2022-03-20 02:35 | disposition left against medical advice (07) ==
LOC: EDUNIT# 00:58 → ER 01:01
DX: G89.29 Other chronic pain (principal); R10.84 Generalized abdominal pain; F17.210 Nicotine dependence, cigarettes, uncomplicated; Z90.49 Acquired absence of other specified parts of digestive tract
CPT/HCPCS: 99281

== ENCOUNTER → 2022-06-16 | Outpatient (CLI) | payer OTHER ==
--- NOTE | 2022-06-17 09:24 | Diagnostic Imaging Report ---
Indication: Routine screening. Comparison is made with prior mammograms from 07/30/2013. 2-D and 3-D bilateral screening mammography was performed with CAD. Scattered fibroglandular densities are identified bilaterally. There are benign nodules in the upper outer aspect of the right breast. No spiculated mass or malignant-appearing microcalcifications are seen. Axillae are unremarkable. IMPRESSION: BI-RADS Category 2 No mammographic features suspicious for malignancy are identified. ACR BI-RADS Category 2: Benign findings. Result letter will be mailed to the patient. Note: At least 10% of breast cancer is not imaged by mammography. Dictated by: Dictated on workstation # [id number]
== END ==
LOC: RAD 14:45
PROVIDERS: ATTEND Pediatrics
DX: Z12.31 Encounter for screening mammogram for malignant neoplasm of breast (principal)
CPT/HCPCS: 77063; 77067